=== PATIENT | female | born 1960 | race Caucasian/White ===

== ENCOUNTER → 2017-09-28 06:41 | Outpatient (CLI) | payer OTHER, SELFPAY ==
[2017-09-28 07:52] LABS: AST(SGOT) 17 U/L (15-37); Alanine Aminotransfer ALT/SGPT 30 U/L (13-56); Albumin, Serum 4.1 g/dL (3.2-5.0); Alkaline Phosphatase 87 U/L (45-117); Bilirubin, Direct 0.15 mg/dL (0.00-0.30); Cholesterol 152 mg/dL (200); Globulin 3.3 g/dL (2.2-4.2); High Density Lipoprotein 70 mg/dL; Protein, Total 7.4 g/dL (6.4-8.2); Triglycerides 116 mg/dL; Very Low Density Lipoprotein 23 mg/dL (5-40)
== END ==
PROVIDERS: Family Provider Family Medicine; PCP Family Medicine; Visit Provider Internal Medicine Cardiovascular Disease
DX: E78.5 Hyperlipidemia, unspecified (principal); Z79.899 Other long term (current) drug therapy
CPT/HCPCS: 36415; 80061; 80076

== ENCOUNTER → 2018-03-26 08:39 | Outpatient (CLI) | payer OTHER, SELFPAY ==
[2018-03-26 10:31] LABS: AST(SGOT) 16 U/L (15-37); Alanine Aminotransfer ALT/SGPT 26 U/L (13-56); Alkaline Phosphatase 95 U/L (45-117); Bilirubin, Direct 0.23 mg/dL (0.00-0.30); Cholesterol 140 mg/dL (200); Globulin 3.1 g/dL (2.2-4.2); High Density Lipoprotein 86 mg/dL; Protein, Total 7.1 g/dL (6.4-8.2); Triglycerides 47 mg/dL; Very Low Density Lipoprotein 9 mg/dL (5-40)
== END ==
PROVIDERS: Family Provider Family Medicine; PCP Family Medicine; Referring Provider Internal Medicine Cardiovascular Disease; Visit Provider Internal Medicine Cardiovascular Disease
DX: E78.5 Hyperlipidemia, unspecified (principal)
CPT/HCPCS: 36415; 80061; 80076

== ENCOUNTER → 2018-09-17 09:31 | Outpatient (CLI) | payer OTHER, SELFPAY ==
[2018-03-30 11:34] VITALS: BMI 36.0
--- NOTE | 2018-09-17 09:35 | BI_ITS ---
MAMMOGRAPHY - BILATERAL SCREENING 3-D TOMOSYNTHESIS REASON FOR EXAM: Female, 57 years old. Baseline Bilateral Screening 3-D tomosynthesis PERTINENT HISTORY: No significant family history. TECHNIQUE: 2-D mammograms and 3-D Tomosynthesis of the breast (s) were performed. CAD was performed. COMPARISON: None. Baseline examination. FINDINGS: The breast composition is composed of scattered fibroglandular density. There is a 6.4 mm maximum dimension, ovoid, well-circumscribed nodule within the right lower medial breast positioned approximately 5 cm from the nipple base. This finding may represent a cyst or somewhat atypically positioned intramammary lymph node. However, as this is a baseline exam and stability cannot be determined, recommend characterization of this nodule with sonography. There are scattered typically benign appearing calcifications. There is no evidence of malignancy within the left breast. BI/SCREEN MAMM (CAD) W/DESMOND BILAT IMPRESSION: Subcentimeter right breast nodule. Baseline exam without comparison. Therefore recommend characterization with sonography. ASSESSMENT CATEGORY: BIRADS Category 0: Incomplete. Need additional imaging evaluation as above. A letter regarding these results will be sent to the patient by the facility within 30 days. FOLLOW UP RECOMMENDATION: Ultrasound Recommended. (I) Approximately 10% of breast cancers are not detected by mammography. A normal mammogram should not delay biopsy of a clinically suspicious abnormality. Electronically Signed: Julio Mckee MD at 12:57 EDT , Service support ,
== END ==
PROVIDERS: Family Provider Family Medicine; PCP Family Medicine; Referring Provider Nurse Practitioner Women's Health; Visit Provider Nurse Practitioner Women's Health
DX: Z12.31 Encounter for screening mammogram for malignant neoplasm of breast (principal)
CPT/HCPCS: 77063; 77067

== ENCOUNTER → 2018-09-28 11:54 | Outpatient (CLI) | payer OTHER, SELFPAY ==
[2018-03-30 11:34] VITALS: BMI 36.0
--- NOTE | 2018-09-28 11:56 | US_ITS ---
STUDY: ULTRASOUND BREAST - RIGHT REASON FOR EXAM: Female, 57 years old. Abnormal screening mammogram. TECHNIQUE: Axial and longitudinal images of the RIGHT breast were performed with a high resolution ultrasound transducer. COMPARISON: Comparison is made with prior mammogram dated September 17, 2018. FINDINGS: RIGHT Breast: The mammographic abnormality corresponds to a 4 mm x 6 mm x 4 mm well-defined hypoechoic nodule at the 4:00 position of the breast at 1 cm from the nipple. This most likely absence a small lymph node. US/Breast Limited Unilateral IMPRESSION: Findings suggestive of a small lymph node as described. Routine mammographic follow-up is recommended. ASSESSMENT CATEGORY: BIRADS Category 2: Benign. A letter regarding these results will be sent to the patient by the facility within 30 days. Electronically Signed: Gee Aguirre, at 14:35 EDT , Service support ,
== END ==
PROVIDERS: Family Provider Family Medicine; PCP Family Medicine; Referring Provider Nurse Practitioner Women's Health; Visit Provider Nurse Practitioner Women's Health
DX: R92.8 Other abnormal and inconclusive findings on diagnostic imaging of breast (principal)
CPT/HCPCS: 76642

== ENCOUNTER → 2018-10-24 09:01 | Outpatient (CLI) | payer OTHER, SELFPAY ==
[2018-03-30 11:34] VITALS: BMI 36.0
[2018-10-24 10:11] LABS: AST(SGOT) 16 U/L (15-37); Alanine Aminotransfer ALT/SGPT 24 U/L (13-56); Alkaline Phosphatase 99 U/L (45-117); Bilirubin, Direct 0.17 mg/dL (0.00-0.30); Cholesterol 179 mg/dL (200); Globulin 3.3 g/dL (2.2-4.2); High Density Lipoprotein 76 mg/dL; Protein, Total 7.3 g/dL (6.4-8.2); Triglycerides 101 mg/dL; Very Low Density Lipoprotein 20 mg/dL (5-40)
== END ==
PROVIDERS: Family Provider Family Medicine; PCP Family Medicine; Referring Provider Internal Medicine Cardiovascular Disease; Visit Provider Internal Medicine Cardiovascular Disease
DX: E78.5 Hyperlipidemia, unspecified (principal)
CPT/HCPCS: 36415; 80061; 80076

== ENCOUNTER 2018-11-23 07:56 | Day surgery (SDC) | payer OTHER, SELFPAY ==
[2018-10-25 08:59] VITALS: BMI 36.0
[2018-10-25 10:28] VITALS: BMI 37.9
[2018-11-23] VITALS (9 sets, daily range): BP systolic 98–131; BP diastolic 58–83; PULSE 63–74; RESP 16–95; TEMP 35.9–37.4; O2SAT 16–100; BMI 37.9
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
--- NOTE | 2018-11-23 09:19 | OP.ENDO_ITS ---
11/23/2018 Donis Portillo [address] [place] [address] Re : Colonoscopy procedure for Irma Flower Dear Dr. Portillo This procedure was performed on Friday, November 23, 2018. My impressions and recommendations are as follows: Impressions : - Hemorrhoids found on perianal exam. - Diverticulosis in the sigmoid colon. There was no evidence of diverticular bleeding. - The examination was otherwise normal. - No specimens collected. Recommendations : - Discharge patient to home. - Resume previous diet. - Continue present medications. - Repeat colonoscopy in 10 years for screening purposes. My findings are described in the full procedure note, which is enclosed. If I can be of further assistance, please feel free to contact me at Doctor phone number(s): Work: . Sincerely, Donis Hodges MD 11/23/2018 9:18:47 AM This report has been signed electronically.
== END 2018-11-23 10:32 | disposition home or self-care (01) ==
LOC: EN 07:57 → AC 07:58
PROVIDERS: Family Provider Family Medicine; PCP Family Medicine; Referring Provider Family Medicine; Visit Provider Surgery
PROC: 0DJD8ZZ Inspection of Lower Intestinal Tract, Via Natural or Artificial Opening Endoscopic (ICD-10-PCS; CPT 45378; principal; 2018-11-23 08:55)
DX: Z12.11 Encounter for screening for malignant neoplasm of colon (principal); K57.30 Diverticulosis of large intestine without perforation or abscess without bleeding; K64.9 Unspecified hemorrhoids; I48.0 Paroxysmal atrial fibrillation; E78.5 Hyperlipidemia, unspecified; Z79.82 Long term (current) use of aspirin
CPT/HCPCS: 45378; 99152; 99153; J7120

== ENCOUNTER → 2019-10-23 16:08 | Outpatient (CLI) | payer OTHER, SELFPAY ==
[2018-11-23 08:16] VITALS: BMI 37.9
[2019-10-23 17:41] LABS: AST(SGOT) 27 U/L (15-37); Alanine Aminotransfer ALT/SGPT 25 U/L (13-56); Albumin, Serum 4.3 g/dL (3.2-5.0); Alkaline Phosphatase 100 U/L (45-117); Bilirubin, Direct 0.23 mg/dL (0.00-0.30); Cholesterol 179 mg/dL (200); Globulin 3.3 g/dL (2.2-4.2); High Density Lipoprotein 80 mg/dL; Protein, Total 7.6 g/dL (6.4-8.2); Triglycerides 123 mg/dL; Very Low Density Lipoprotein 25 mg/dL (5-40)
== END ==
PROVIDERS: Referring Provider Internal Medicine Cardiovascular Disease; Visit Provider Internal Medicine Cardiovascular Disease
DX: E78.5 Hyperlipidemia, unspecified (principal)
CPT/HCPCS: 36415; 80061; 80076

== ENCOUNTER → 2021-05-13 12:17 | Outpatient (CLI) | payer OTHER, SELFPAY ==
--- NOTE | 2021-05-13 12:20 | BI_ITS ---
MAMMOGRAPHY - BILATERAL SCREENING 3-D TOMOSYNTHESIS REASON FOR EXAM: Female, 60 years old. SCREENING PERTINENT HISTORY: No significant family history. TECHNIQUE: 2-D mammograms and 3-D Tomosynthesis of the breast (s) were performed. CAD was performed. COMPARISON: 09/17/2018 FINDINGS: The breast composition is composed of scattered fibroglandular density. Scattered benign calcifications are seen. No dense spiculated masses or suspicious microcalcifications are identified. No architectural distortion is identified. There is no skin thickening or retraction. There has been no significant change since the prior study. BI/SCRN MAMM (CAD)W/DESMOND BILAT IMPRESSION: No mammographic signs of malignancy. Routine yearly mammograms recommended. ASSESSMENT CATEGORY: BIRADS Category 1: Negative. A letter regarding these results will be sent to the patient by the facility within 30 days. FOLLOW UP RECOMMENDATION: Yearly follow up mammogram recommended. (A) Approximately 10% of breast cancers are not detected by mammography. A normal mammogram should not delay biopsy of a clinically suspicious abnormality. Electronically Signed: Yuriy Montoya MD at 13:49 EST Tel , Service support ,
== END ==
PROVIDERS: Referring Provider Family Medicine; Visit Provider Family Medicine
DX: Z12.31 Encounter for screening mammogram for malignant neoplasm of breast (principal)
CPT/HCPCS: 77063; 77067

== ENCOUNTER → 2021-09-13 | Outpatient (CLI) | payer OTHER, SELFPAY ==
[2021-09-13 16:55] LABS: Absolute Lymphocyte Count 2.19 X10^3/uL (0.83-4.51); Absolute Neutrophil Count 3.7 X10^3/uL (2.0-7.7); Basophil# 0.04 X10^3/uL; Basophil% 0.6 % (0-1); Eosinophil# 0.26 X10^3/uL; Eosinophils% 3.9 % (0-5); Hematocrit 43.8 % (37-47); Hemoglobin 14.8 g/dL (12.0-15.0); Lymphocyte # 2.19 X10^3/ul (0.83-4.51); Lymphocyte % 32.6 % (19-41); Mean Corp Hgb Conc 33.8 g/dL (32-36); Mean Corpuscular Hgb 28.9 pg (27.0-32.0); Mean Corpuscular Volume 85.5 fL (81-99); Mean Platelet Vol. 12.2 fl (6.2-12.0); Monocyte# 0.49 X10^3/uL; Monocyte% 7.3 % (0-10); NRBC Flagged by Analyzer 0 % (0-5); Neutrophil # 3.71 X10^3/uL (2.7-7.7); Neutrophil % 55.3 % (47-70); Platelet Count 221 K/mm3 (150-450); RBC Distribution Width SD 37.6 fl (35.1-43.9); Red Blood Count 5.12 M/mm3 (4.2-5.4); White Blood Count 6.7 K/mm3 (4.4-11.0)
[2021-09-13 18:05] LABS: BNP,B-Type NATRIURETIC PEPTIDE 6.8 pg/mL (0-100)
[2021-09-13 18:16] LABS: Anion Gap 7 (5-15); BUN 12 mg/dL (7-18); BUN/Creat Ratio 20.4 RATIO (10-20); Calcium,Total 9.4 mg/dL (8.5-10.1); Chloride 107 mmol/L (98-107); Creatinine, Serum 0.59 mg/dL (0.55-1.02); EST Glomerular Filtration Rate 110 mL/min (>60); Est Glom Filt Rate - Afr Amer 133 mL/min (>60); Glucose 83 mg/dL (74-106); Magnesium 2.4 mg/dL (1.6-2.6); Potassium 3.6 mmol/L (3.5-5.1); Sodium Level 138 mmol/L (136-145); Thyroid Stim Hormone (TSH) 1.81 uIU/mL (0.358-3.74)
== END | disposition home or self-care (01) ==
LOC: LAB 15:37
PROVIDERS: Referring Provider Physician Assistant Medical; Visit Provider Physician Assistant Medical
DX: R06.00 Dyspnea, unspecified (principal); I48.0 Paroxysmal atrial fibrillation; E78.00 Pure hypercholesterolemia, unspecified
CPT/HCPCS: 36415; 80048; 83735; 83880; 84443; 85025

== ENCOUNTER → 2021-09-22 | Outpatient (CLI) | payer OTHER, SELFPAY ==
--- NOTE | 2021-09-22 14:04 | PFTCOMP_ITS ---
COMPLETE PULMONARY FUNCTION TEST INTERPRETATION Brief HPI: Patient is a 60-year-old female, currently under the care of Jimena Grigsby, who presents to [facility] for complete pulmonary function tests secondary to diagnosis of dyspnea. Respiratory therapist reports good effort and reproducible results. Interpretation: Forced expiration spirometry shows no large airways obstructive ventilatory defect with an FEV1 of 94% predicted. There is no significant bronchodilator response by strict ATS criteria. Spirograms are of good quality and plateau slowly, indicating slowly emptying areas of the lungs. The respiratory flow volume loop shows decreased expiratory flow rates at high lung volumes consistent with small airways obstruction. Lung volumes by body plethysmography show a decreased total lung capacity at 4.35 L, 79% predicted. All other lung volumes are reduced symmetrically. Diffusion capacity by carbon monoxide is normal at 88% predicted. The airway resistance is normal. No previous pulmonary function tests were available for review. Impression: Mild restrictive ventilatory defect with some stigmata of small airways disease and preserved diffusion capacity.
== END | disposition home or self-care (01) ==
LOC: PSN 08:18
PROVIDERS: Referring Provider Physician Assistant Medical; Visit Provider Physician Assistant Medical
DX: R06.00 Dyspnea, unspecified (principal)
CPT/HCPCS: 94060; 94726; 94729

== ENCOUNTER → 2021-12-17 | Outpatient (CLI) | payer OTHER, SELFPAY ==
--- NOTE | 2021-12-17 13:06 | ECHOCS_ITS ---
Reason For Study: DYSPNEA Procedure This was a 2D Doppler, Color Flow transthoracic echocardiogram. The study was technically difficult. Contrast injection was performed. Exam performed in department. Left Ventricle Normal LV size. Moderate concentric left ventricular hypertrophy. Left ventricular systolic function is normal. The estimated ejection fraction is 60 %. Stage 2 diastolic dysfunction. No regional wall motion abnormalities noted. Right Ventricle Normal RV size. Normal systolic function. Atria Normal left atrium. Normal right atrium. Mitral Valve There is mild mitral annular calcification. Mild (1+) eccentric mitral valve insufficiency. Tricuspid Valve Normal tricuspid valve. Mild tricuspid valve insufficiency. Pulmonary artery systolic pressure is 24 mmHg. Aortic Valve The aortic valve is not well visualized. Pulmonic Valve Normal pulmonic valve. Great Vessels Normal aortic root. The pulmonary artery is normal size. Normal inferior vena cava. Pericardium/Pleural No pericardial effusion. Medication 22 gauge I.V. with prn adaptor inserted into right arm. Diluted definity 1.5ml given slow IV push to enhance endocardial definition. MMode/2D Measurements & Calculations LVIDd: 4.6 cm IVSd: 1.6 cm Ao root diam: 3.1 cm LVIDs: 3.0 cm LVPWd: 1.7 cm FS: 34.7 % LAV(MOD-bp): 70.7 ml LVAd ap4: 42.2 cm2 SV(MOD-sp4): 129.3 ml LAV(MOD-bp) Indexed: 31.8 ml/m2 LVLd ap4: 8.7 cm LAV(MOD-sp2): 79.5 ml EDV(MOD-sp4): 168.0 ml LAV(MOD-sp4): 62.4 ml EDV(sp4-el): 172.9 ml LVAs ap4: 18.1 cm2 LVLs ap4: 6.6 cm ESV(MOD-sp4): 38.8 ml ESV(sp4-el): 42.3 ml EF(MOD-sp4): 76.9 % EF(sp4-el): 75.5 % SV(sp4-el): 130.6 ml LA A4 area: 21.0 cm2 LA dimension(2D): 4.6 cm RA A4 area: 17.1 cm2 Time Measurements MV dec time: 0.22 sec Doppler Measurements & Calculations MV E max shailesh: 94.0 cm/sec MV V2 max: 106.6 cm/sec MV dec slope: 428.4 cm/sec2 MV A max shailesh: 54.9 cm/sec MV max P.6 mmHg MV E/A: 1.7 MV V2 mean: 61.9 cm/sec MV mean P.8 mmHg MV V2 VTI: 39.7 cm Ao V2 max: 147.3 cm/sec LV V1 max: 110.7 cm/sec PA V2 max: 119.9 cm/sec Ao max P.7 mmHg LV V1 max P.9 mmHg PA V2 mean: 87.0 cm/sec Ao V2 mean: 100.5 cm/sec LV V1 mean P.0 mmHg Ao mean P.7 mmHg LV V1 mean: 82.4 cm/sec Ao V2 VTI: 35.6 cm LV V1 VTI: 27.3 cm TR max shailesh: 224.4 cm/sec TR max P.1 mmHg ECHO/Echo Complete W/ Contrast Interpretation Summary Normal LV size. Left ventricular systolic function is normal. The estimated ejection fraction is 60 %. Moderate concentric left ventricular hypertrophy. Stage 2 diastolic dysfunction. Contrast injection was performed. Ordering Physician: Jimena Grigsby Referring Physician: Jimena Grigsby Performed By: Marilu Bustos RCS
== END | disposition home or self-care (01) ==
LOC: CVS 13:05
PROVIDERS: Referring Provider Physician Assistant Medical; Visit Provider Physician Assistant Medical
DX: R06.00 Dyspnea, unspecified (principal); I48.0 Paroxysmal atrial fibrillation; E78.5 Hyperlipidemia, unspecified
CPT/HCPCS: 93306; Q9957; A4216; C8929

== ENCOUNTER 2022-06-07 21:42 | Emergency (ER) | payer OTHER, SELFPAY ==
[2022-06-07 21:43] VITALS: BP 154/76; PULSE 77; RESP 18; TEMP 35.9; O2SAT 96; BMI 39.9
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
[2022-06-07 22:42] LABS: Absolute Lymphocyte Count 2.49 X10^3/uL (0.83-4.51); Absolute Neutrophil Count 3.4 X10^3/uL (2.0-7.7); Basophil# 0.05 X10^3/uL; Basophil% 0.7 % (0-1); Eosinophil# 0.35 X10^3/uL; Eosinophils% 5.1 % (0-5); Hemoglobin 13.6 g/dL (12.0-15.0); Lymphocyte # 2.49 X10^3/ul (0.83-4.51); Lymphocyte % 36.1 % (19-41); Mean Corp Hgb Conc 33.2 g/dL (32-36); Mean Corpuscular Hgb 28.8 pg (27.0-32.0); Mean Corpuscular Volume 86.9 fL (81-99); Mean Platelet Vol. 12.1 fl (6.2-12.0); Monocyte# 0.57 X10^3/uL; Monocyte% 8.3 % (0-10); NRBC Flagged by Analyzer 0 % (0-5); Neutrophil # 3.43 X10^3/uL (2.7-7.7); Neutrophil % 49.7 % (47-70); Platelet Count 185 K/mm3 (150-450); RBC Distribution Width CV 12.7 % (11.6-14.6); RBC Distribution Width SD 39.8 fl (35.1-43.9); Red Blood Count 4.72 M/mm3 (4.2-5.4); White Blood Count 6.9 K/mm3 (4.4-11.0)
[2022-06-07 22:52] LABS: Prothrombin Time (Protime)PT. 12.8 SECONDS (11.7-14.9)
[2022-06-07 22:53] LABS: Partial Thromboplast Time 29.4 Seconds (24.1-36.2)
== END 2022-06-07 22:38 | disposition home or self-care (01) ==
PROVIDERS: Emergency Provider Emergency Medicine; Visit Provider Emergency Medicine
DX: S50.12XA Contusion of left forearm, initial encounter (principal); I48.0 Paroxysmal atrial fibrillation; Z79.82 Long term (current) use of aspirin; X58.XXXA Exposure to other specified factors, initial encounter
CPT/HCPCS: 85025; 85610; 85730; 99282

== ENCOUNTER 2023-07-23 05:17 | Emergency (ER) | payer BC, SELFPAY ==
[2023-07-23 05:18] VITALS: BP 179/73; PULSE 139; RESP 17; TEMP 36.1; O2SAT 98; BMI 38.9
[2023-07-23 05:29] VITALS: O2SAT 96
--- NOTE | 2023-07-23 05:29 | EKG12_ITS ---
Test Reason : DYSRHYTHMIA Blood Pressure : / mmHG Vent. Rate : 067 BPM Atrial Rate : 067 BPM P-R Int : 176 ms QRS Dur : 112 ms QT Int : 418 ms P-R-T Axes : 035 -77 027 degrees QTc Int : 441 ms Normal sinus rhythm Left anterior fascicular block Minimal voltage criteria for LVH, may be normal variant ( Max product ) Possible Lateral infarct , age undetermined Abnormal ECG Confirmed by Willy Bejarano ([id number]), material expeditor MELVA CURTIS ([id number]) on 07/25/2023 8:17:24 AM Referred By: SARI Confirmed By:Willy Bejarano
--- NOTE | 2023-07-23 05:29 | RAD_ITS ---
EXAM: XR CHEST, 1 VIEW CLINICAL INDICATION: chest pain TECHNIQUE: Frontal view of the chest. COMPARISON: No relevant prior studies available. FINDINGS: LUNGS AND PLEURAL SPACES: Unremarkable. No consolidation or edema. No pneumothorax. No effusion. HEART: Unremarkable. Cardiac silhouette not enlarged. MEDIASTINUM: Central airways and mediastinal contour are unremarkable. BONES/JOINTS: Unremarkable. No acute fracture. SOFT TISSUES: Unremarkable. RAD/Chest 1 View (Portable) IMPRESSION: No acute cardiopulmonary abnormality. Electronically Signed: Willy Martinez MD at 6:07 EDT ,
[2023-07-23 05:43] LABS: Absolute Lymphocyte Count 2.27 X10^3/uL (0.83-4.51); Absolute Neutrophil Count 2.5 X10^3/uL (2.0-7.7); Basophil# 0.05 X10^3/uL; Basophil% 0.9 % (0-1); Eosinophils% 5.4 % (0-5); Hematocrit 43.3 % (37-47); Hemoglobin 14.4 g/dL (12.0-15.0); Lymphocyte # 2.27 X10^3/ul (0.83-4.51); Lymphocyte % 40.8 % (19-41); Mean Corp Hgb Conc 33.3 g/dL (32-36); Mean Corpuscular Hgb 28.7 pg (27.0-32.0); Mean Corpuscular Volume 86.3 fL (81-99); Mean Platelet Vol. 11.9 fl (6.2-12.0); Monocyte# 0.47 X10^3/uL; Monocyte% 8.4 % (0-10); NRBC Flagged by Analyzer 0 % (0-5); Neutrophil # 2.47 X10^3/uL (2.7-7.7); Neutrophil % 44.3 % (47-70); Platelet Count 186 K/mm3 (150-450); RBC Distribution Width CV 12.5 % (11.6-14.6); RBC Distribution Width SD 39.2 fl (35.1-43.9); Red Blood Count 5.02 M/mm3 (4.2-5.4); White Blood Count 5.6 K/mm3 (4.4-11.0)
--- OUTSIDE RECORDS SUMMARY | 2023-07-23 05:44 | XMS RPT_ITS | CCD ---
Author Name Unknown Address [id number] [place] [address] Organization [facility] Care Team Providers Care Enterprise Systems Administrator Name Role Phone Sandra Timmons Unavailable Unavailable MD Alexandro, Alberto Morales Unavailable RAFAEL FERMIN Attending Unavailable IMCA Referring Unavailable RAFAEL RESENDIZ Primary Care Unavailable ALIVIA JOSEHP Attending Unavailable RAFAEL RESENDIZ Referring Unavailable RAFAEL RESENDIZ Primary Care Unavailable MICHAEL HENAO DO Primary Care Physician [phone] Skylar AMBROSIO, Corine Ramirez Unavailable Unavailable Jordyn Bose Unavailable Jordyn Bose Unavailable MICHAEL HENAO DO Primary Care Physician [phone] MAST YOSEF JOHNSON Attending UnavailMICHAEL Zarate DO Primary Care Unavailable SUPPAYESHA LPAZA DPM Attending Unavailable MICHAEL HENAO DO Primary Care Unavailable SUPPAYESHA PLAZA DPM Attending Unavailable MICHAEL HENAO DO Primary Care Unavailable MAST YOSEF JOHNSON Attending UnavailMICHAEL Zarate DO Primary Care Unavailable Allergies Allergy Classification Reported Allergen(s) Allergy Type Date of Onset Reaction(s) Facility (5 sources) acetaminophen / HYDROcodone Drug Allergy 10-28-19 11 Itching [facility] Work Phone: (5 sources) atorvastatin Drug Allergy 10-28-19 11 Myalgias [facility] Work Phone: (14 sources) codeine; Translations: [CODEINE] Drug Allergy 10-28-19 11 Itching (finding) [facility] Work Phone: (14 sources) Contrast media; Translations: [CONTRAST DYE] allergy to substance 10-28-19 11 Hives [facility] Work Phone: [phone] (6 sources) ibuprofen; Translations: [IBUPROFEN] Drug Allergy 12-07-19 17 GI upset [facility] Work Phone: [phone] (6 sources) naproxen; Translations: [NAPROXEN] Drug Allergy 12-07-19 17 GI upset [facility] Work Phone: [phone] (13 sources) penicillin; Translations: [penicillin] Drug Allergy 10-28-19 11 Itching (finding) [facility] Work Phone: [phone] (5 sources) pseudoephedrine Drug Allergy 10-28-19 11 Swelling [facility] Work Phone: [phone] (5 sources) sotalol Drug Allergy 12-07-19 17 difficulty concentrating, fatigue [facility] Work Phone: [phone] (5 sources) BENADRYL (HIGH DOSES drug allergy 10-28-19 11 leg jerks [facility] Work Phone: [phone] (1 source) apixaban; Translations: [APIXABAN] Drug Allergy [facility] Repository (1 source) diphenhydrAMINE; Translations: [DIPHENHYDRAMINE HCL] Drug Allergy [facility] Repository (1 source) Penicillins; Translations: [PENICILLINS] Propensity to adverse reactions (disorder) [facility] Repository (8 sources) diphenhydrAMINE; Translations: [diphenhydramine] Drug Allergy Spasm of bladder (finding), Itching (finding) [facility] Medications Current Medications Medication Drug Class(es) Dates Sig (Normalized) Sig (Original) acetaminophen 500 mg oral tablet (4 sources) Start: 12-06-2019 acetaminophen 500 mg oral tablet Dose : 1,000 mg = 2 tab(s), Oral, TID, PRN pain or fever, 0 Refill(s) Start Date: 12/06/19 Status: Ordered 120 actuat albuterol 0.1 mg/actuat / ipratropium bromide 0.02 mg/actuat inhalation spray (1 source) Anticholinergic, beta2-Adrenergic Agonist Start: 10-01-2021 take 1 dose by inhalation every six hours as needed Combivent Respimat CFC free 20 mcg-100 mcg/inh inhalation aerosol Dose = 1 puff(s), Inhalation, q6hr, NEEDED, # 1 EA, 1 Refill(s), Pharmacy: [facility]/pharmacy #[id number], 170.2, cm, 10/01/21 9:59:00 EDT, Height, kg, 10/01/21 9:59:00 EDT, Dosing Weight Start Date: 10/01/21 Status: Ordered albuterol MDI (90 mcg/inh) CFC free inhalation aerosol (6 sources) Start: 05-25-2023 End: 08-23-2023 take 2 puff(s) by inhalation every four hours as needed for wheezing albuterol MDI (90 mcg/inh) CFC free inhalation aerosol 2 puff(s), Inhalation, q4h, PRN as needed for wheezing, # 18 gram(s), 0 Refill(s), Pharmacy: [facility] [id number] [facility] [employer], Acute sinusitis COVID-19, 170.5, cm, 05/25/23 9:38:00 EST, Height, kg, 05/25/23 9:38:00 EST, Dosing Weight Start Date: 05/25/23 Stop Date: 08/23/23 Status: Ordered Completed/Discontinued Medications Medication Drug Class(es) Dates Sig (Normalized) Sig (Original) albuterol 0.83 mg/ml inhalation solution (20 sources) beta2-Adrenergic Agonist Start: 07-04-2014 End: 12-06-2016 ALBUTEROL SULFATE NEBU 90 Mcg/inh as needed ALBUTEROL SULFATE NEBU Alberto Andrew David MD Problems Active Problems Problem Classification Problem Date Documented Date Episodic/Chronic Cardiac dysrhythmias (20 sources) Unspecified atrial flutter; Translations: [Paroxysmal supraventricular tachycardia] Onset: 10-27-2010 07-05-2016 Chronic Conditions associated with dizziness or vertigo (4 sources) Vertigo 07-25-2022 Episodic Disorders of lipid metabolism (5 sources) Hyperlipidemia; Translations: [Hyperlipidemia, unspecified] Onset: 10-27-2010 10-27-2010 Chronic Genitourinary symptoms and ill-defined conditions (7 sources) Urinary symptoms ; Translations: [Dysuria] Onset: 01-25-2023 01-25-2023 Episodic Other nutritional; endocrine; and metabolic disorders (2 sources) Obesity, unspecified Onset: 06-13-2018 Chronic Other nutritional; endocrine; and metabolic disorders (6 sources) Finding of body mass index; Translations: [Body mass index (BMI) 39.0-39.9, adult] Onset: 07-04-2014 08-18-2016 Chronic Other upper respiratory disease (1 source) Deviated nasal septum 07-05-2023 Episodic Other upper respiratory infections (14 sources) Acute maxillary sinusitis; Translations: [Acute sinusitis] 07-30-2019 Episodic Unclassified (4 sources) Body mass index (BMI) 40.0-44.9, adult; Translations: [Body mass index (BMI) 39.0-39.9, adult] Onset: 07-04-2014 07-04-2014 Chronic Unclassified (4 sources) Long-term drug therapy; Translations: [Other detention (current) drug therapy] Onset: 07-04-2014 07-15-2015 Past or Other Problems Problem Classification Problem Date Documented Date Episodic/Chronic Other aftercare (6 sources) Long-term drug therapy; Translations: [Other rn long term care (current) drug therapy] Onset: 07-04-2014 07-15-2015 Episodic Other and unspecified benign neoplasm (2 sources) 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, including hip; Translations: [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, including hip] Onset: 02-03-2023 Episodic Other circulatory disease (5 sources) Carotid bruit; Translations: [Other specified symptoms and signs involving the circulatory and respiratory systems] Onset: 08-18-2016 08-18-2016 Episodic Other screening for suspected conditions (not mental disorders or infectious disease) (5 sources) Electrocardiogram abnormal; Translations: [Abnormal electrocardiogram [ECG] [EKG]] Onset: 10-27-2010 10-27-2010 Episodic Syncope (5 sources) Syncope and collapse; Translations: [Syncope and collapse] Onset: 05-06-2013 05-06-2013 Episodic Urinary tract infections (5 sources) Urinary tract infectious disease; Translations: [Urinary tract infection, site not specified] Onset: 01-25-2023 01-25-2023 Episodic Results Test Name Value Interpretation Reference Range Facil ity Vital Signs Date Time Vital Sign Value Performing Clinician Aren foley 02-03-2023 10:33-0400 Diastolic Blood Pressure Non-Invasive 73 1 AYESHA SUPPAN DPM [facility] 02-03-2023 10:33-0400 Heart rate 56 /min AYESHA SUPPAN DPM [facility] 02-03-2023 10:33-0400 Respiratory rate 15 /min AYESHA SUPPAN DPM [facility] 02-03-2023 10:33-0400 Systolic Blood Pressure Non-Invasive 120 1 AYESHA SUPPAN DPM [facility] 02-03-2023 10:25-0400 Diastolic Blood Pressure Non-Invasive 65 1 AYESHA SUPPAN DPM [facility] 02-03-2023 10:25-0400 Heart rate 54 /min AYESHA SUPPAN DPM [facility] 02-03-2023 10:25-0400 Respiratory rate 18 /min AYESHA SUPPAN DPM [facility] 02-03-2023 10:25-0400 Systolic Blood Pressure Non-Invasive 113 1 AYESHA SUPPAN DPM [facility] 02-03-2023 10:15-0400 Diastolic Blood Pressure Non-Invasive 67 1 AYESHA SUPPAN DPM [facility] 02-03-2023 10:15-0400 Heart rate 59 /min AYESHA SUPPAN DPM [facility] 02-03-2023 10:15-0400 Respiratory rate 16 /min AYESHA SUPPAN DPM [facility] 02-03-2023 10:15-0400 Systolic Blood Pressure Non-Invasive 119 1 AYESHA SUPPAN DPM [facility] 02-03-2023 10:05-0400 Body temperature 97.34 [degF] AYESHA SUPPAN DPM [facility] 02-03-2023 10:00-0400 Respiratory Rate - Anes 15 br/min AYESHA SUPPAN DPM [facility] 02-03-2023 09:55-0400 Respiratory Rate - Anes 11 br/min AYESHA SUPPAN DPM [facility] 02-03-2023 09:50-0400 Body height 170 cm AYESHA SUPPAN DPM [facility] 02-03-2023 09:50-0400 Body weight 112 kg AYESHA SUPPAN DPM [facility] 02-03-2023 09:50-0400 Respiratory Rate - Anes 11 br/min AYESHA SUPPAN DPM [facility] 02-03-2023 08:21-0400 Body temperature 97.52 [degF] AYESHA SUPPAN DPM [facility] 02-03-2023 08:21-0400 Heart rate 72 /min AYESHA SUPPAN DPM [facility] 01-24-2023 09:15-0400 Body height 170.2 cm AYESHA SUPPAN DPM [facility] 01-24-2023 09:15-0400 Body weight 111.9 kg AYSEHA MOHAN DPM [facility] 01-24-2023 09:15-0400 Body weight 38.63 kg/m2 AYESHA MOHAN DPM [facility] 01-24-2023 09:15-0400 Heart rate 68 /min AYESHA PINEDAAN DPM [facility] 01-24-2023 09:15-0400 Respiratory rate 20 /min AYESHA PINEDAAN DPM [facility] 03-28-2017 16:09-0500 Body height 170.18 cm Jordyn Bose Work Phone: [facility] Work Phone: 03-28-2017 16:09-0500 Body mass index (BMI) [Ratio] 38.65 kg/m2 Jordyn Bose Work Phone: [facility] Work Phone: 03-28-2017 16:09-0500 Body weight 111.95 kg Jordyn Bose Work Phone: [facility] Work Phone: 03-28-2017 16:09-0500 Diastolic blood pressure 60 mm[Hg] Jordyn Bose Work Phone: [facility] Work Phone: 03-28-2017 16:09-0500 Heart rate 68 /min Jordyn Bose Work Phone: [facility] Work Phone: 03-28-2017 16:09-0500 Respiratory rate 20 /min Jordyn Bose Work Phone: [facility] Work Phone: 03-28-2017 16:09-0500 Systolic blood pressure 120 mm[Hg] Jordyn Bose Work Phone: [facility] Work Phone: 08-18-2016 15:35-0400 Body height 170.18 cm Corine Cheng RN [facility] Work Phone: 08-18-2016 15:35-0400 Body mass index (BMI) [Ratio] 39.28 kg/m2 Corine Cheng RN [facility] Work Phone: 08-18-2016 15:35-0400 Body weight 113.76 kg Corine Cheng RN [facility] Work Phone: 08-18-2016 15:35-0400 Diastolic blood pressure 60 mm[Hg] Corine Cheng RN [facility] Work Phone: 08-18-2016 15:35-0400 Heart rate 72 /min Corine Cheng RN [facility] Work Phone: 08-18-2016 15:35-0400 Respiratory rate 12 /min Corine Cheng RN [facility] Work Phone: 08-18-2016 15:35-0400 Systolic blood pressure 104 mm[Hg] Corine Cheng RN [facility] Work Phone: 08-18-2016 15:35-0400 Weight 113.76 kg Alberto David MD [facility] Work Phone: 07-07-2016 09:00-0500 Body surface area Derived from formula 2.22 m2 Corine Cheng RN [facility] Work Phone: Encounters Encounter Date Encounter Type Care Provider Facility Start: 07-05-2023 End: 07-10-2023 ambulatory YOSEF MAST SLEEP MEDICINE PHYSICIAN-CONTRACT MAIL CARRIER Facility:[facility] Start: 07-05-2023 End: 07-09-2023 Outreach Lab YOSEF MAST SLEEP MEDICINE PHYSICIAN-CONTRACT MAIL CARRIER [facility] Start: 02-03-2023 End: 02-03-2023 ambulatory AYESHA MOHAN DPM Facility:[facility] Start: 02-03-2023 End: 02-03-2023 SAME DAY STAY AYESHA MOHAN DPM [facility] Start: 01-25-2023 End: 01-30-2023 ambulatory YOSEF MAST SLEEP MEDICINE PHYSICIAN-CONTRACT MAIL CARRIER Facility:[facility] Start: 01-25-2023 End: 01-29-2023 Outreach Lab YOSEF MAST SLEEP MEDICINE PHYSICIAN-CONTRACT MAIL CARRIER [facility] Start: 01-24-2023 End: 01-25-2023 ambulatory AYESHA N SUPPAN DPM Facility:[facility] Start: 01-24-2023 End: 01-24-2023 Admission to establishment AYESHA N SUPPAN DPM [facility] Start: 05-13-2022 End: 05-17-2022 Outreach Lab JOANN AQUINO SLEEP MEDICINE PHYSICIAN-CONTRACT MAIL CARRIER [facility] Start: 12-04-2021 End: 12-08-2021 Outreach Lab RAFAEL PAREDES DO [facility] Start: 07-21-2021 End: 07-25-2021 Outreach Lab GARRETT DAVIS SLEEP MEDICINE PHYSICIAN-CONTRACT MAIL CARRIER [facility] Start: 03-20-2021 End: 03-20-2021 Patient encounter procedure ROBB CHAPEPLL MD [facility] Start: 06-13-2018 End: 06-13-2018 Patient encounter procedure RAFAEL FERMIN Facility:[facility] Start: 11-01-2017 End: 11-01-2017 Patient encounter procedure AILVIA JOSEPH Facility:[facility] Procedures Date Procedure Procedure Detail Performing Clinician Start: 03-28-2017 End: 03-28-2017 Documentation of current medications Jordyn Bose Work Phone: Start: 03-28-2017 End: 03-28-2017 JEFF David MD Start: 03-28-2017 End: 03-28-2017 Follow Up Appt 6 months Nisha Anderson Start: 02-15-2017 End: 03-24-2017 *Hepatic Function Panel Nisha Anderson Start: 02-15-2017 End: 03-24-2017 Lipid 1996 panel - Serum or Plasma Alberto David MD Start: 02-15-2017 End: 03-24-2017 Hepatic function 2000 panel - Serum or Plasma Alberto David MD Start: 02-15-2017 End: 03-24-2017 Lipid 1996 panel - Serum or Plasma Alberto David MD Start: 08-18-2016 End: 08-18-2016 Dietary management education, guidance, and counseling Corine Cehng RN Start: 08-18-2016 End: 08-18-2016 Documentation of current medications Corine Cheng RN Start: 08-18-2016 End: 08-29-2016 Carotid duplex Alberto David MD Start: 08-18-2016 End: 08-29-2016 Carotid duplex Alberto David MD Start: 08-18-2016 End: 03-28-2017 JEFF David MD Start: 08-18-2016 End: 03-28-2017 Follow Up Appt 6 months Nisha Anderson Start: 08-15-2016 End: 08-16-2016 *Hepatic Function Panel Nisha Anderson Start: 08-15-2016 End: 08-16-2016 Lipid Otto panel - Serum or Plasma Alberto David MD Start: 08-15-2016 End: 08-16-2016 Hepatic function 2000 panel - Serum or Plasma Alberto David MD Start: 08-15-2016 End: 08-16-2016 Lipid 1996 panel - Serum or Plasma Alberto David MD Start: 07-07-2016 End: 07-07-2016 JEFF David MD Start: 07-07-2016 End: 07-07-2016 Ecg routine ecg w/least 12 lds w/i&r Alberto David MD Start: 07-07-2016 End: 07-07-2016 Follow Up Appt 6 weeks Alberto David MD Start: 07-07-2016 End: 07-07-2016 JEFF David MD Start: 07-07-2016 End: 07-07-2016 Ecg routine ecg w/least 12 lds w/i&r Alberto David MD Start: 07-07-2016 End: 07-07-2016 Follow Up Appt 6 weeks Alberto David MD Start: 07-06-2016 End: 07-26-2016 INR in Platelet poor plasma by Coagulation assay Alberto David MD Start: 07-06-2016 End: 07-26-2016 INR in Platelet poor plasma by Coagulation assay Alberto David MD Start: 05-23-2016 End: 05-24-2016 Referral to optical goods drill operator Alberto David MD Start: 05-23-2016 End: 05-24-2016 Referral to optical goods drill operator Alberto David MD Start: 05-20-2016 End: 05-20-2016 JEFF David MD Start: 05-20-2016 End: 05-20-2016 Follow Up Appt 3 months Nisha Anderson Start: 05-20-2016 End: 05-20-2016 Follow Up Appt Other Alberto David MD Start: 05-20-2016 End: 05-20-2016 JEFF David MD Start: 05-20-2016 End: 05-20-2016 Follow Up Appt 3 months Nisha Anderson Start: 05-20-2016 End: 05-20-2016 Follow Up Appt Other Alberto David MD Start: 07-07-2015 End: 07-07-2015 JEFF David MD Start: 07-07-2015 End: 07-07-2015 Ecg routine ecg w/least 12 lds w/i&r Alberto David MD Start: 07-07-2015 End: 07-07-2015 Follow Up Appt 1 year Alberto David MD Start: 07-07-2015 End: 07-07-2015 JEFF David MD Start: 07-07-2015 End: 07-07-2015 Ecg routine ecg w/least 12 lds w/i&r Alberto David MD Start: 01-01-2015 End: 07-14-2015 *Hepatic Function Panel Nisha Anderson Start: 01-01-2015 End: 07-14-2015 Lipid 1996 panel - Serum or Plasma Alberto David MD Start: 01-01-2015 End: 07-14-2015 Hepatic function 2000 panel - Serum or Plasma Alberto David MD Start: 01-01-2015 End: 07-14-2015 Lipid 1996 panel - Serum or Plasma Alberto David MD Start: 07-04-2014 End: 07-04-2014 *Hepatic Function Panel Nisha Anderson Start: 07-04-2014 End: 07-04-2014 ACADEMIC SUPPORT CENTER DIRECTOR Alberto David MD Start: 07-04-2014 End: 07-05-2014 Documentation of current medications Alberto David MD Start: 07-04-2014 End: 07-04-2014 Follow Up Appt 1 year Alberto David MD Start: 07-04-2014 End: 07-04-2014 Lipid 1996 panel - Serum or Plasma Alberto David MD Start: 07-04-2014 End: 07-04-2014 Thyrotropin [Units/volume] in Serum or Plasma Alberto David MD Start: 07-04-2014 End: 07-04-2014 Thyroxine (T4) [Mass/volume] in Serum or Plasma Alberto David MD Start: 07-04-2014 End: 07-04-2014 JEFF David MD Start: 07-04-2014 End: 07-05-2014 Documentation of current medications Alberto David MD Start: 07-04-2014 End: 07-04-2014 Hepatic function 2000 panel - Serum or Plasma Alberto David MD Start: 07-04-2014 End: 07-04-2014 Lipid 1996 panel Alberto David MD Start: 07-04-2014 End: 07-04-2014 Thyrotropin [Units/volume] in Serum or Plasma Alberto David MD Start: 07-04-2014 End: 02-20-2015 Thyroxine (T4) [Mass/volume] in Serum or Plasma Alberto David MD Start: 05-06-2013 End: 09-02-2013 24 hour holter monitor Donovan Harmon MD Start: 05-06-2013 End: 09-02-2013 Lipid 1996 panel Donovan Harmon MD Start: 04-02-2012 End: 04-04-2012 24 hour holter monitor Alberto David MD Start: 04-02-2012 End: 04-04-2012 Ecg routine ecg w/least 12 lds w/i&r Alberto David MD Start: 04-02-2012 End: 04-04-2012 24 hour holter monitor Alberto David MD Start: 04-02-2012 End: 04-04-2012 Ecg routine ecg w/least 12 lds w/i&r Alberto David MD Start: 01-18-2012 End: 01-18-2012 Follow Up Appt 1 year Alberto David MD Start: 01-18-2012 End: 01-18-2012 Follow Up Appt 1 year Alberto David MD Appendectomy AYESHA MOHAN DP M Arthroscopy of knee AYESHA MAIER DPM Plan of Treatment Date Care Activity Detail Author Start: 09-28-2017 End: 09-28-2017 Patient encounter procedure Appointment [facility] Work Phone: Start: 09-21-2017 End: 03-24-2017 *Hepatic Function Panel *Hepatic Function Panel [facility] Work Phone: Start: 09-21-2017 End: 03-24-2017 Lipid panel [AGGREGATE] *Lipid Profile CC PCP [facility] Work Phone: Start: 09-21-2017 End: 03-24-2017 Hepatic function 2000 panel - Serum or Plasma *Hepatic Function Panel [facility] Work Phone: Start: 09-21-2017 End: 03-24-2017 Lipid 1996 panel - Serum or Plasma *Lipid Profile CC PCP [facility] Work Phone: Start: 03-28-2017 End: 03-28-2017 Appointment Appointment [facility] Work Phone: Start: 03-28-2017 End: 03-28-2017 [employer] DIRECTOR [employer] DIRECTOR [facility] Work Phone: Start: 03-28-2017 End: 03-28-2017 Follow Up Appt 6 months Follow Up Appt 6 months [facility] Work Phone: Start: 02-17-2017 End: 02-17-2017 Patient encounter procedure Appointment [facility] Phone: Start: 02-15-2017 End: 03-24-2017 *Hepatic Function Panel *Hepatic Function Panel [facility] Work Phone: Start: 02-15-2017 End: 03-24-2017 Lipid panel [AGGREGATE] *Lipid Profile CC PCP [facility] Work Phone: Start: 02-15-2017 End: 03-24-2017 Hepatic function 2000 panel - Serum or Plasma *Hepatic Function Panel [facility] Phone: Start: 02-15-2017 End: 03-24-2017 Lipid 1996 panel - Serum or Plasma *Lipid Profile CC PCP [facility] Work Phone: Start: 08-18-2016 End: 08-18-2016 Carotid duplex Carotid duplex [facility] Work Phone: Start: 08-18-2016 End: 08-18-2016 [employer] DIRECTOR [employer] C[facility] DIRECTOR [facility] Work Phone: Start: 08-18-2016 End: 08-18-2016 Ecg routine ecg w/least 12 lds w/i&r EKG (In office) [facility] Work Phone: Start: 08-18-2016 End: 08-18-2016 Follow Up Appt 6 months Follow Up Appt 6 months [facility] Work Phone: Start: 08-18-2016 End: 08-18-2016 Carotid duplex Carotid duplex [facility] Work Phone: Start: 08-18-2016 End: 03-28-2017 [employer] C[employer] DIRECTOR AC[employer] CENTER DIRECTOR [facility] Work Phone: Start: 08-18-2016 End: 08-18-2016 Ecg routine ecg w/least 12 lds w/i&r EKG (In office) [facility] Work Phone: Start: 08-18-2016 End: 03-28-2017 Follow Up Appt 6 months Follow Up Appt 6 months [facility] Work Phone: Start: 08-15-2016 End: 08-16-2016 *Hepatic Function Panel *Hepatic Function Panel [facility] Work Phone: Start: 08-15-2016 End: 08-16-2016 Lipid panel [AGGREGATE] *Lipid Profile CC PCP [facility] Work Phone: Start: 08-15-2016 End: 08-16-2016 Hepatic function 2000 panel - Serum or Plasma *Hepatic Function Panel [facility] Work Phone: Start: 08-15-2016 End: 08-16-2016 Lipid 1996 panel - Serum or Plasma *Lipid Profile CC PCP [facility] Work Phone: Start: 07-07-2016 End: 07-07-2016 [employer] C[facility] DIRECTOR AC[employer] CENTER DIRECTOR [facility] Work Phone: Start: 07-07-2016 End: 07-07-2016 Ecg routine ecg w/least 12 lds w/i&r EKG (In office) [facility] Work Phone: Start: 07-07-2016 End: 07-07-2016 Follow Up Appt 6 weeks Follow Up Appt 6 weeks [facility] Work Phone: Start: 07-07-2016 End: 07-07-2016 [employer] [employer] C[facility] DIRECTOR AC[employer] C[facility] DIRECTOR [facility] Work Phone: Start: 07-07-2016 End: 07-07-2016 Ecg routine ecg w/least 12 lds w/i&r EKG (In office) [facility] Work Phone: Start: 07-07-2016 End: 07-07-2016 Follow Up Appt 6 weeks Follow Up Appt 6 weeks [facility] Work Phone: Start: 07-06-2016 End: 07-26-2016 INR Coag RelTime (PPP) *PT/INR - Standing Order [facility] Work Phone: Start: 07-06-2016 End: 07-26-2016 INR in Platelet poor plasma by Coagulation assay *PT/INR - Standing Order [facility] Work Phone: Start: 05-23-2016 End: 05-23-2016 EPS Referral EPS Referral Rafael Fermin, [address], [place], [address] [facility] Work Phone: Start: 05-23-2016 End: 05-23-2016 Patient encounter procedure EPS Referral Rafael Fermin, [address], [place], [address] [facility] Work Phone: Start: 05-20-2016 End: 05-20-2016 [employer] [employer] DIRECTOR [employer] [facility] DIRECTOR [facility] Work Phone: Start: 05-20-2016 End: 05-20-2016 Follow Up Appt 3 months Follow Up Appt 3 months [facility] Work Phone: Start: 05-20-2016 End: 05-20-2016 Follow Up Appt Other Follow Up Appt Other [facility] Work Phone: Start: 05-20-2016 End: 05-20-2016 [employer] C[facility] DIRECTOR AC[employer] C[facility] DIRECTOR [facility] Work Phone: Start: 05-20-2016 End: 05-20-2016 Follow Up Appt 3 months Follow Up Appt 3 months [facility] Work Phone: Start: 05-20-2016 End: 05-20-2016 Follow Up Appt Other Follow Up Appt Other [facility] Work Phone: Start: 07-07-2015 End: 07-07-2015 [employer] C[facility] DIRECTOR [employer] C[facility] DIRECTOR [facility] Work Phone: Start: 07-07-2015 End: 07-07-2015 Ecg routine ecg w/least 12 lds w/i&r EKG (In office) [facility] Work Phone: Start: 07-07-2015 End: 07-07-2015 Follow Up Appt 1 year Follow Up Appt 1 year [facility] Work Phone: Start: 07-07-2015 End: 07-07-2015 [employer] C[facility] DIRECTOR AC[employer] CENTER DIRECTOR [facility] Work Phone: Start: 07-07-2015 End: 07-07-2015 Ecg routine ecg w/least 12 lds w/i&r EKG (In office) [facility] Work Phone: Start: 07-07-2015 End: 07-07-2015 Follow Up Appt 1 year Follow Up Appt 1 year [facility] Work Phone: Start: 01-01-2015 End: 07-14-2015 *Hepatic Function Panel *Hepatic Function Panel [facility] Work Phone: Start: 01-01-2015 End: 07-14-2015 Lipid panel [AGGREGATE] *Lipid Profile CC PCP [facility] Work Phone: Start: 01-01-2015 End: 07-14-2015 Hepatic function 2000 panel - Serum or Plasma *Hepatic Function Panel [facility] Group Work Phone: Start: 01-01-2015 End: 07-14-2015 Lipid 1996 panel - Serum or Plasma *Lipid Profile CC PCP [facility] Work Phone: Start: 07-04-2014 End: 07-04-2014 *Hepatic Function Panel *Hepatic Function Panel [facility] Work Phone: Start: 07-04-2014 End: 07-04-2014 [facility] DIRECTOR [facility] DIRECTOR [facility] Work Phone: Start: 07-04-2014 End: 07-04-2014 Follow Up Appt 1 year Follow Up Appt 1 year [facility] Work Phone: Start: 07-04-2014 End: 07-04-2014 Lipid panel [AGGREGATE] *Lipid Profile CC PCP [facility] Work Phone: Start: 07-04-2014 End: 07-04-2014 Thyroid stimulating hormone (TSH) *TSH [facility] Work Phone: Start: 07-04-2014 End: 07-04-2014 Thyroxine (T4) *T4 (Total) [facility] Work Phone: Start: 07-04-2014 End: 07-04-2014 [facility] DIRECTOR [facility] DIRECTOR [facility] Work Phone: Start: 07-04-2014 End: 07-04-2014 Follow Up Appt 1 year Follow Up Appt 1 year [facility] Work Phone: Start: 07-04-2014 End: 07-04-2014 Hepatic function 2000 panel - Serum or Plasma *Hepatic Function Panel [facility] Work Phone: Start: 07-04-2014 End: 07-04-2014 Lipid 1996 panel - Serum or Plasma *Lipid Profile CC PCP [facility] Work Phone: Start: 07-04-2014 End: 07-04-2014 Thyrotropin [Units/volume] in Serum or Plasma *TSH [facility] Work Phone: Start: 07-04-2014 End: 07-04-2014 Thyroxine (T4) [Mass/volume] in Serum or Plasma *T4 (Total) [facility] Work Phone: Start: 05-06-2013 End: 09-02-2013 24 hour holter monitor 24 hour holter monitor [facility] Work Phone: Start: 05-06-2013 End: 09-02-2013 24 hour holter monitor 24 hour holter monitor [facility] Work Phone: Start: 04-02-2012 End: 04-02-2012 24 hour holter monitor 24 hour holter monitor [facility] Work Phone: Start: 04-02-2012 End: 04-04-2012 Ecg routine ecg w/least 12 lds w/i&r EKG (In office) [facility] Work Phone: Start: 04-02-2012 End: 04-02-2012 24 hour holter monitor 24 hour holter monitor [facility] Work Phone: Start: 04-02-2012 End: 04-04-2012 Ecg routine ecg w/least 12 lds w/i&r EKG (In office) [facility] Work Phone: Start: 01-18-2012 End: 01-18-2012 Follow Up Appt 1 year Follow Up Appt 1 year [facility] Work Phone: Start: 01-18-2012 End: 01-18-2012 Follow Up Appt 1 year Follow Up Appt 1 year [facility] Work Phone: Patient Education [facility] Work Phone: Immunizations Immunization Date Immunization Notes Care Provider Ephraim horn 06-02-2020 SARS-CoV-2 mRNA (tozinameran) vaccine ROBB CHAPPELL MD [facility] 05-13-2020 SARS-CoV-2 mRNA (tozinameran) vaccine ROBB CHAPPELL MD [facility] 01-14-2016 influenza virus vacc ine, unspecified formulation ORBB CHAPPELL MD [facility] 03-15-2014 influenza virus vacc ine, unspecified formulation ROBB CHAPPELL MD [facility] 01-28-2013 pneumococcal polysaccharide vaccine, 23 valent ROBB CHAPPELL MD [facility] 01-28-2013 tetanus toxoid, redu brian diphtheria toxoid, and acellular pertussis vaccine, adsorbed ROBB CHAPPELL MD [facility] 03-21-2012 hepatitis B vaccine, adult dosage ROBB CHAPPELL MD [facility] 12-08-2011 hepatitis B vaccine, adult dosage ROBB CHAPPELL MD [facility] Payers Date Payer Category Payer Unknown [id number] 1960 Unknown [id number] [id number] 1960 Unknown [id number] [id number] [id number] 1959 Unknown [id number] 1959 Unknown [id number] [id number] [id number] 1959 Unknown [id number] 2.16.8 [id number] 1960 Unknown [id number] [id number] [id number] Social History Date Type Detail Facility Start: 11-12-2019 End: 07-05-2023 Never smoked tobacco (finding) [facility] Sex Assigned At [facility] Functional Status Date Assessment Result Facility 09-22-2023 Functional Status elevated on pi llows, ice on [facility] 02-03-2023 Functional Status Maintained [facility] 01-24-2023 Functional Status Sensory Deficits None A [facility] Mental Status Date Assessment Result Facility 02-03-2023 Mental Status Orientation Oriented x 4 [facility] 02-03-2023 Mental Status [facility] Clinical Notes 08-02-2016 to 07-07-2023 Note Date & Type Note Facility 07-07-2023 Note . MICRO - Microbiology PROCEDURE: Urine Culture [*1] SOURCE: Urine, Clean Catch BODY SITE: COLLECTED DATE/TIME: 07/05/2023 10:33 EST RECEIVED DATE/TIME: 07/05/2023 15:39 EST START DATE/TIME: 07/05/2023 15:39 EST FREE TEXT SOURCE: FINAL REPORTS Final Report [] Verified Date/Time/Personnel: 07/07/2023 07:25 EST 50,000 - 100,000 cfu/ml Klebsiella pneumoniae PRELIMINARY REPORTS Preliminary Report [] Verified Date/Time/Personnel: 07/06/2023 10:55 EST 50,000 - 100,000 cfu/ml Klebsiella pneumoniae [facility] to follow SUSCEPTIBILITY RESULTS Klebsiella pneumoniae Antibiotic [facility] Dilut [facility] Inter Ampicillin >16 Resistant Ampicillin/ <=4/2 Susceptible Sulbactam Aztreonam <=4 Susceptible Cefazolin <=2 Susceptible Ciprofloxacin <=0.25 Susceptible Ertapenem <=0.5 Susceptible Gentamicin <=2 Susceptible ID Panel Not Not Applicable Applicable Imipenem <=1 Susceptible Levofloxacin <=0.5 Susceptible Meropenem <=1 Susceptible Minocycline <=4 Susceptible Nitrofurantoin 64 Intermediate Piperacillin/ <=8 Susceptible Tazobactam Trimethoprim/ <=0.5/9.5 Susceptible Sulfa Performing Locations *1: This test was performed at: [facility], [address] [place] [address], [id number] , [facility] (ID) [place] ADMISSION HISTORY AN D PHYSICIAL CHIEF COMPLAINT: painful right foot, neuroma HISTORY OF PRESENT ILLNESS: continued pain without resolve with cons tx REVIEW OF SYSTEMS: hx cardiology, has clearance updated by Alexandro ACTIVE PROBLEMS: (12) Acute maxillary sinusitis (293369978) Acute sinusitis (64839803) Asthma (584416862) Brugada syndrome (2777666864) Carotid bruit (5247095176) Depression (70402209) High cholesterol (06840407) PAF (paroxysmal atrial fibrillation) (371275168) Postconcussion syndrome (78885396) UTI (urinary tract infection) (090846183) UTI symptoms (037142852) Vertigo (4080517560) MEDICATIONS: Active Inpt Meds: None Active PRN Meds: None One Time Meds: None Active IV Meds: Lactated Ringers Infusion 1,000 mL (LR 1,000 mL) Start: 02/03/23 8:17:00 EDT, Rate: 125 mL/hr, 02/03/23 8:17:00 EDT ALLERGIES: (4) Benadryl codeine Contrast dye penicillin FAMILY HISTORY: SOCIAL HISTORY: PHYSICAL EXAM: VITALS: [id number](kg) 02/03 08:2136.4--[id number] 24 Hr Tmax: 36.4 at 02/03 08:21 36 Hr Tmax: 36.4 at 02/03 08:21 Vital Signs are the last 5 in the past 48 hours. Weights display the last 5 within 7 days. Initial Wt: No Data Available Current Wt: No Data Available GENERAL: AOx3 HEENT:no mass, no JVD CARDIOVASCULAR: no chest pain or SOB, clearance from [facility] RESPIRATORY:no SOB ABDOMEN: defer EXREMETIES: painful right foot NEUROLOGICAL II-XII intact PSYCHIATRIC: LABS: No 36hr Lab Data DIAGNOSTICS: IMPRESSION: neuroma 2nd and 3rd IS right foot PLAN: pt consented for excision/release neuroma 2nd and 3rd IS right foot [facility] 09-22-2023 Hospital Discharge instructions Patient Education 02/03/2023 10:30:59 How to Use a Cast Shoe How to Use a Cast Shoe A cast shoe is a stiff shoe that you wear over a cast. You may need to wear a cast shoe after a foot or leg injury. It helps you to walk and it keeps your cast clean and dry. Your health care provider may give you a cast shoe after you are allowed to use your injured foot or leg to support (bear) your weight. Cast shoes are made of various materials, including those made with canvas sides. They usually havea flat, firm, cushioned bottom. What are the risks? A cast shoe that is not worn properly can lead to cast damage. To protect the cast: Properly position and adjust the shoe to support the cast. Bear weight on the cast shoe only as told by your health care provider. How to use a cast shoe Wear the cast shoe as told by your health care provider. Follow the director of marketing analytics's instructions for use. Tighten and properly adjust the cast shoe so it is secure on your foot. Do not wear the cast shoe while you are resting at home while not standing on your leg. Do not wear it while you are sleeping. Keep the cast shoe clean and dry. Do not wear any other kind of footwear until your health care provider says you can. How to care for your cast shoe Use mild soap and water to clean your cast shoe. Make sure your cast shoe is completely clean and dry before you put it over your cast. Contact a health care provider if: Your cast gets wet or damaged. You have foot pain when you wear the cast shoe. You have foot pain when you move. Your foot pain is getting worse or the pain is not getting better over time. Summary A cast shoe is a rigid shoe that you wear over a cast. A cast shoe helps you to walk and it keeps your cast clean and dry. A cast shoe that is not worn properly can lead to cast damage. This information is not intended to replace advice given to you by your health care provider. Make sure you discuss any questions you have with your health care provider. Document Released: 06/08/2005 Document Revised: 08/22/2019 Document Reviewed: 05/01/2019 [employer] Patient Education 2020 [employer] 02/03/2023 10:30:02 Nausea and Vomiting, Adult Nausea and Vomiting, Adult Nausea is the feeling that you have an upset stomach or that you are about to vomit. Vomiting is when stomach contents are thrown up and out of the mouth as a result of nausea. Vomiting can make you feel weak and cause you to become dehydrated. Dehydration can make you feel tired and thirsty, cause you to have a dry mouth, and decrease how often you urinate. Older adults and people with other diseases or a weak disease-fighting system (immune system) are at higher risk for dehydration. It is important to treat your nausea and vomiting as told by your health care provider. Follow these instructions at home: Watch your symptoms for any changes. Tell your health care provider about them. Follow these instructions to care for yourself at home. Eating and drinking Take an oral rehydration solution (ORS). This is a drink that is sold at pharmacies and retail stores. Drink clear fluids slowly and in small amounts as you are able. Clear fluids include water, ice chips, low-calorie sports drinks, and fruit juice that has water added (diluted fruit juice). Eat bland, vmjo-vt-uhmsxq foods in small amounts as you are able. These foods include bananas, applesauce, rice, lean meats, toast, and crackers. Avoid fluids that contain a lot of sugar or caffeine, such as energy drinks, sports drinks, and soda. Avoid alcohol. Avoid spicy or fatty foods. General instructions Take rcjx-zzr-fxklemw and prescription medicines only as told by your health care provider. Drink enough fluid to keep your urine pale yellow. Wash your hands often using soap and water. If soap and water are not available, use hand bull driver. Make sure that all people in your household wash their hands well and often. Rest at home while you recover. Watch your condition for any changes. Breathe slowly and deeply when you feel nauseated. Keep all follow-up visits as told by your health care provider. This is important. Contact a health care provider if: Your symptoms get worse. You have new symptoms. You have a fever. You cannot drink fluids without vomiting. Your nausea does not go away after 2 days. You feel light-headed or dizzy. You have a headache. You have muscle cramps. You have a rash. You have pain while urinating. Get help right away if: You have pain in your chest, neck, arm, or jaw. You feel extremely weak or you faint. You have persistent vomiting. You have vomit that is bright red or looks like black coffee grounds. You have bloody or black stools or stools that look like tar. You have a severe headache, a stiff neck, or both. You have severe pain, cramping, or bloating in your abdomen. You have difficulty breathing, or you are breathing very quickly. Your heart is beating very quickly. Your skin feels cold and clammy. You feel confused. You have signs of dehydration, such as: ?Dark urine, very little urine, or no urine. ?Cracked lips. ?Dry mouth. ?Sunken eyes. ?Sleepiness. ?Weakness. These symptoms may represent a serious problem that is an emergency. Do not wait to see if the symptoms will go away. Get medical help right away. Call your local emergency services (911 in the [place] Do not drive yourself to the hospital. Summary Nausea is the feeling that you have an upset stomach or that you are about to vomit. As nausea getsworse, it can lead to vomiting. Vomiting can make you feel weak and cause you to become dehydrated. Follow instructions from your health care provider about eating and drinking to prevent dehydration. Take sift-hbm-aptdtha and prescription medicines only as told by your health care provider. Contact your health care provider if your symptoms get worse, or you have new symptoms. Keep all follow-up visits as told by your health care provider. This is important. This information is not intended to replace advice given to you by your health care provider. Make sure you discuss any questions you have with your health care provider. Document Released: 05/01/2006 Document Revised: 08/23/2019 Document Reviewed: 10/09/2018 [employer] Patient Education 2020 [email or web address]. 02/03/2023 10:29:57 Monitored Anesthesia Care, Care After Monitored Anesthesia Care, Care After These instructions provide you with information about caring for yourself after your procedure. Your health care provider may also give you more specific instructions. Your treatment has been plannedaccording to current medical practices, but problems sometimes occur. Call your health care provider if you have any problems or questions after your procedure. What can I expect after the procedure? After your procedure, you may: Feel sleepy for several hours. Feel clumsy and have poor balance for several hours. Feel forgetful about what happened after the procedure. Have poor judgment for several hours. Feel nauseous or vomit. Have a sore throat if you had a breathing tube during the procedure. Follow these instructions at home: For at least 24 hours after the procedure: Have a responsible adult stay with you. It is important to have someone help care for you until youare awake and alert. Rest as needed. Do not: ?Participate in activities in which you could fall or become injured. ?Drive. ?Use heavy machinery. ?Drink alcohol. ?Take sleeping pills or medicines that cause drowsiness. ?Make important decisions or sign legal documents. ?Take care of children on your own. Eating and drinking Follow the diet that is recommended by your health care provider. If you vomit, drink water, juice, or soup when you can drink without vomiting. Make sure you have little or no nausea before eating solid foods. General instructions Take uuff-jqb-ugvztsm and prescription medicines only as told by your health care provider. If you have sleep apnea, surgery and certain medicines can increase your risk for breathing problems. Follow instructions from your health care provider about wearing your sleep device: ?Anytime you are sleeping, including during daytime naps. ?While taking prescription pain medicines, sleeping medicines, or medicines that make you drowsy. If you smoke, do not smoke without supervision. Keep all follow-up visits as told by your health care provider. This is important. Contact a health care provider if: You keep feeling nauseous or you keep vomiting. You feel light-headed. You develop a rash. You have a fever. Get help right away if: You have trouble breathing. Summary For several hours after your procedure, you may feel sleepy and have poor judgment. Have a responsible adult stay with you for at least 24 hours or until you are awake and alert. This information is not intended to replace advice given to you by your health care provider. Make sure you discuss any questions you have with your health care provider. Document Released: 08/21/2016 Document Revised: 07/30/2018 Document Reviewed: 08/21/2016 [employer] Patient Education 2020 [email or web address]. Follow Up Care 01/03/2023 12:46:48 With:AYESHA MOHAN DPM, Surgery Address: [address] [place] [address], [address] [facility] [place] [place] [address]- When:02/09/2023 12:40:00 Comments:Follow-up as scheduled [facility] 09-22-2023 Summary of episode note Discharge Instructions Thank you for allowing [facility] to assist you with your healthcare needs. The following is importantdischarge information regarding your hospital visit. Your Care Team MICHAEL HENAO DO What to do next Follow Up Appointments Follow Up with AYESHA MOHAN DPM, Surgery When 02/09/2023 12:40 PM EDT Why: Follow-up as scheduled Where: [address], [address] [facility] [place] [place] [address]- The Following Activity and Diet Have Been Ordered for You Discharge Activity - Ordered -- Other, Follow the post-operative/post-procedure activity instructions provided by your physician's office., 02/03/23 10:06:00 EDT No qualifying data available. The Following Equipment Has Been Ordered for You Discharge Home Equipment Discharge Wound Care - Ordered -- Follow the post-operative/post-procedure wound care instructions provided by your physician's office., 02/03/23 10:06:00 EDT The Following Treatments Have Been Ordered for You Discharge Labs No qualifying data available. Discharge Radiology No qualifying data available. Other Therapies No qualifying data available. Post Acute Orders No qualifying data available. Allergies Benadryl (muscle spasm, Bladder spasm, Itch) Contrast dye (hives) codeine (Itch) penicillin (Itch) Medications Please ask your primary doctor or pharmacist before taking any other medication not listed, including over the counter drugs, herbal medications, vitamins and or supplements as they may interact withyour home medications. What How Much When Why Instructions Last Dose Unchanged albuterol (albuterol MDI (90 mcg/ inh) CFC free inhalation aerosol) 2 puff(s) by inhalation Every 4 hours as needed for as needed for wheezing Acute sinusitis Unchanged aspirin (Aspirin Enteric Coated 81 mg oral delayed release tablet) 1 tab(s) by mouth Once a day Unchanged dilTIAZem (DilTIAZem (Eqv-Cardizem CD) 120 mg/ 24 hours oral capsule, extended release) 1 cap by mouth Once a day Unchanged ibuprofen (ibuprofen 200 mg oral tablet) 2 tab(s) by mouth Every 6 hours as needed for pain or fever Unchanged loratadine (loratadine 10 mg oral tablet) 1 tab(s) by mouth Once a day as needed for Allergy symptoms Unchanged multivitamin (Multivitamin) 1 tab(s) by mouth Every day Unchanged multivitamin with minerals (Calcium/ Magnesium/ Vit D) 15 Milliliter by mouth Two (2) times a day Unchanged nitrofurantoin (Macrobid 100 mg oral capsule) 1 cap by mouth Two (2) times a day Duration: 10 Days Take with food Unchanged phenazopyridine (AZO Urinary Pain Relief Max Strength) 195 Milligram by mouth Three (3) times a day after meals as needed for as needed for urinary discomfort Unchanged rosuvastatin (rosuvastatin 10 mg oral tablet) 1 tab(s) by mouth Once a day Please take this list to your next doctor s visit. Bring all medications you take, including over the counter medications, herbals and other supplements with you to your doctor s visit. Patients and families are reminded to discard old lists and to update any records with all medication providers or retail pharmacies. Education Materials How to Use a Cast Shoe A cast shoe is a stiff shoe that you wear over a cast. You may need to wear a cast shoe after a foot or leg injury. It helps you to walk and it keeps your cast clean and dry. Your health care provider may give you a cast shoe after you are allowed to use your injured foot or leg to support (bear) your weight. Cast shoes are made of various materials, including those made with canvas sides. They usually havea flat, firm, cushioned bottom. What are the risks? A cast shoe that is not worn properly can lead to cast damage. To protect the cast: Properly position and adjust the shoe to support the cast. Bear weight on the cast shoe only as told by your health care provider. How to use a cast shoe Wear the cast shoe as told by your health care provider. Follow the director of marketing analytics's instructions for use. Tighten and properly adjust the cast shoe so it is secure on your foot. Do not wear the cast shoe while you are resting at home while not standing on your leg. Do not wear it while you are sleeping. Keep the cast shoe clean and dry. Do not wear any other kind of footwear until your health care provider says you can. How to care for your cast shoe Use mild soap and water to clean your cast shoe. Make sure your cast shoe is completely clean and dry before you put it over your cast. Contact a health care provider if: Your cast gets wet or damaged. You have foot pain when you wear the cast shoe. You have foot pain when you move. Your foot pain is getting worse or the pain is not getting better over time. Summary A cast shoe is a rigid shoe that you wear over a cast. A cast shoe helps you to walk and it keeps your cast clean and dry. A cast shoe that is not worn properly can lead to cast damage. This information is not intended to replace advice given to you by your health care provider. Make sure you discuss any questions you have with your health care provider. Document Released: 06/08/2005 Document Revised: 08/22/2019 Document Reviewed: 05/01/2019 [employer] Patient Education 2020 [email or web address]. Nausea and Vomiting, Adult Nausea is the feeling that you have an upset stomach or that you are about to vomit. Vomiting is when stomach contents are thrown up and out of the mouth as a result of nausea. Vomiting can make you feel weak and cause you to become dehydrated. Dehydration can make you feel tired and thirsty, cause you to have a dry mouth, and decrease how often you urinate. Older adults and people with other diseases or a weak disease-fighting system (immune system) are at higher risk for dehydration. It is important to treat your nausea and vomiting as told by your health care provider. Follow these instructions at home: Watch your symptoms for any changes. Tell your health care provider about them. Follow these instructions to care for yourself at home. Eating and drinking Take an oral rehydration solution (ORS). This is a drink that is sold at pharmacies and retail stores. Drink clear fluids slowly and in small amounts as you are able. Clear fluids include water, ice chips, low-calorie sports drinks, and fruit juice that has water added (diluted fruit juice). Eat bland, mpgq-yc-rsdzro foods in small amounts as you are able. These foods include bananas, applesauce, rice, lean meats, toast, and crackers. Avoid fluids that contain a lot of sugar or caffeine, such as energy drinks, sports drinks, and soda. Avoid alcohol. Avoid spicy or fatty foods. General instructions Take fstm-plf-uappiaj and prescription medicines only as told by your health care provider. Drink enough fluid to keep your urine pale yellow. Wash your hands often using soap and water. If soap and water are not available, use hand bull driver. Make sure that all people in your household wash their hands well and often. Rest at home while you recover. Watch your condition for any changes. Breathe slowly and deeply when you feel nauseated. Keep all follow-up visits as told by your health care provider. This is important. Contact a health care provider if: Your symptoms get worse. You have new symptoms. You have a fever. You cannot drink fluids without vomiting. Your nausea does not go away after 2 days. You feel light-headed or dizzy. You have a headache. You have muscle cramps. You have a rash. You have pain while urinating. Get help right away if: You have pain in your chest, neck, arm, or jaw. You feel extremely weak or you faint. You have persistent vomiting. You have vomit that is bright red or looks like black coffee grounds. You have bloody or black stools or stools that look like tar. You have a severe headache, a stiff neck, or both. You have severe pain, cramping, or bloating in your abdomen. You have difficulty breathing, or you are breathing very quickly. Your heart is beating very quickly. Your skin feels cold and clammy. You feel confused. You have signs of dehydration, such as: ? Dark urine, very little urine, or no urine. ? Cracked lips. ? Dry mouth. ? Sunken eyes. ? Sleepiness. ? Weakness. These symptoms may represent a serious problem that is an emergency. Do not wait to see if the symptoms will go away. Get medical help right away. Call your local emergency services (911 in the [place] Do not drive yourself to the hospital. Summary Nausea is the feeling that you have an upset stomach or that you are about to vomit. As nausea getsworse, it can lead to vomiting. Vomiting can make you feel weak and cause you to become dehydrated. Follow instructions from your health care provider about eating and drinking to prevent dehydration. Take bywm-zki-ohfdmal and prescription medicines only as told by your health care provider. Contact your health care provider if your symptoms get worse, or you have new symptoms. Keep all follow-up visits as told by your health care provider. This is important. This information is not intended to replace advice given to you by your health care provider. Make sure you discuss any questions you have with your health care provider. Document Released: 05/01/2006 Document Revised: 08/23/2019 Document Reviewed: 10/09/2018 ElsePrior Knowledge Patient Education 2020 [email or web address]. Monitored Anesthesia Care, Care After These instructions provide you with information about caring for yourself after your procedure. Your health care provider may also give you more specific instructions. Your treatment has been plannedaccording to current medical practices, but problems sometimes occur. Call your health care provider if you have any problems or questions after your procedure. What can I expect after the procedure? After your procedure, you may: Feel sleepy for several hours. Feel clumsy and have poor balance for several hours. Feel forgetful about what happened after the procedure. Have poor judgment for several hours. Feel nauseous or vomit. Have a sore throat if you had a breathing tube during the procedure. Follow these instructions at home: For at least 24 hours after the procedure: Have a responsible adult stay with you. It is important to have someone help care for you until youare awake and alert. Rest as needed. Do not: ? Participate in activities in which you could fall or become injured. ? Drive. ? Use heavy machinery. ? Drink alcohol. ? Take sleeping pills or medicines that cause drowsiness. ? Make important decisions or sign legal documents. ? Take care of children on your own. Eating and drinking Follow the diet that is recommended by your health care provider. If you vomit, drink water, juice, or soup when you can drink without vomiting. Make sure you have little or no nausea before eating solid foods. General instructions Take qbqt-uam-qcotyll and prescription medicines only as told by your health care provider. If you have sleep apnea, surgery and certain medicines can increase your risk for breathing problems. Follow instructions from your health care provider about wearing your sleep device: ? Anytime you are sleeping, including during daytime naps. ? While taking prescription pain medicines, sleeping medicines, or medicines that make you drowsy. If you smoke, do not smoke without supervision. Keep all follow-up visits as told by your health care provider. This is important. Contact a health care provider if: You keep feeling nauseous or you keep vomiting. You feel light-headed. You develop a rash. You have a fever. Get help right away if: You have trouble breathing. Summary For several hours after your procedure, you may feel sleepy and have poor judgment. Have a responsible adult stay with you for at least 24 hours or until you are awake and alert. This information is not intended to replace advice given to you by your health care provider. Make sure you discuss any questions you have with your health care provider. Document Released: 08/21/2016 Document Revised: 07/30/2018 Document Reviewed: 08/21/2016 ElsePrior Knowledge Patient Education 2020 [employer] Additional Information VACCINATE! IT SAVES LIVES! Members of the community who have not yet received the COVID-19 vaccine and would like to receive it can visit one of [facility] vaccine clinics. There are many vaccine clinic locations within the [facility]. For locations and available times, please visit [email or web address].gov/. It is important to note that some COVID mobile vaccine clinics are held outdoors and may be canceled in rainy or stormy conditions. To learn more about pediatric vaccinations (ages 5-11), we invite you to visit the [facility] webpage. https://www.[facility].org/pages/6128-Dwgjq-Ubwmbffhdtm-Yjbghvcurp-Zzaag-Yci stions.htmlTo learn more about the COVID-19 vaccine, we invite you to visit the CDC website for a list of frequently asked questions.https://www.cdc.gov/coronavirus/2019-ncov/vaccines/faq.html [facility] Patient Portal Access Instructions: Stay connected with your healthcare team and access your personal medical information anytime with the [facility] Patient Portal. Please follow the directions below to create your [facility] account: 1.Access the email account you provided upon registration to the hospital/physician office.2.Look for an invitation email from [facility].3.Open the email and access the invitation link: AcceptInvitation to [facility].4.Fill in the required gordon to create your account. To access your account, visit [email or web address]. Click the blue button labeled Access Patient Portal and then log in with the username and password that you created in the steps above. You will be able to view your test results, lab results, a summary of your visits, upcoming appointments and more. There is also a convenient messaging option where you can send secure messages to your p rovider. In addition, you will have the ability to download any documents or summaries to your computer and/or send the information securely to a physician. Remember that your healthcare information is confidential, so carefully consider who you will allowto register on the [facility] Patient Portal for access to your information. You can also access the [facility] on the [facility] jarvis. Simply click on Patient Portal and then log into your account. If you would like to receive a full copy of your medical records, please contact the [facility] Medical Records Department by calling [phone], Monday through Monday between 8 a.m. and 4:30 p.m. HOW TO SAFELY DISPOSE OF PRESCRIPTION MEDICATIONS Please use one of the following methods to safely dispose of your unused medications. 1.Use a drug disposal kit: the drug disposal pouch allows you to safely discard your old and unuseddrugs. Ask your nurse to give you one when you are discharged.2.Visit a local take-back location: Many local pharmacies and police departments have programs that collect old and unwanted prescriptiondrugs. Call your local pharmacy or go to http://MotherKnows.Jybe/9B6Ca1k to find one close to you.3.Make use of household items: Use cat litter or old coffee grounds to dispose medications if other options arenot available. Mix your drugs with these household products, seal them in an airtight container andthrow it into the garbage. Call [facility]: [phone] to be sure your drugs can be disposed of in this way. Some medicines may require a different approach.4.Never flush your medications down the toilet. IF YOU HAVE BEEN PRESCRIBED AN OPIOID FOR PAIN If you have been prescribed an opioid (such as hydrocodone, oxycodone or morphine), it is critical to understand the possible side effects and risks of opioid pain medications. Even when taken as directed, opioids can have several side effects including: Tolerance, meaning you might need to take more of a medication for the same pain relief. Nausea, vomiting and/or constipation. Sleepiness, dizziness, dry mouth, confusion, depression or itching. Physical dependence, meaning you have withdrawal symptoms when a medication is stopped, can develop within a few days. KNOW YOUR RESPONSIBILITIES It is important to know exactly how much and how often to take the opioid pain medications you are prescribed. Never take opioids in higher amounts or more often than prescribed. Do not combine opioids with alcohol or other drugs that cause drowsiness, such as benzodiazepines, also known as benzos, including diazepam and alprazolam, muscle relaxants or sleep aids. Never sell or share prescription opioids. This is illegal. Store opioids in a secure place and out of reach of others (including children, family, friends and visitors). The last page of this document has been signed and retained as a CHART COPY. Signatures Patient Education Materials How to Use a Cast Shoe Nausea and Vomiting, Adult Monitored Anesthesia Care, Care After Medication Leaflets My discharge plan and instructions have been reviewed and explained to me and I,JORDYN FLOWER understand my current condition and have read and understand these discharge instructions. I have received a written copy of the plan/instructions. If I have questions, I am aware that I should contact my doctor. Patient/Bobbin Handler Signature: Date/Time: Relationship to Patient: Witness Name/Signature: Date/Time: [facility]09-22-2023 Note [place] ADMISSION HISTORY AND PHYSICIAL CHIEF COMPLAINT: painful right foot, neuroma HISTORY OF PRESENT ILLNESS: continued pain without resolve with cons tx REVIEW OF SYSTEMS: cardiology, has clearance updated by Alexandro ACTIVE PROBLEMS: (12) Acute maxillary sinusitis (812359063) Acute sinusitis (30182898) Asthma (387499786) Brugada syndrome (3427683844) Carotid bruit (9763730611) Depression (84269857) High cholesterol (03400301) PAF (paroxysmal atrial fibrillation) (818872876) Postconcussion syndrome (16782860) UTI (urinary tract infection) (950389147) UTI symptoms (864130266) Vertigo (8846451760) MEDICATIONS: Active Inpt Meds: None Active PRN Meds: None One Time Meds: None Active IV Meds: Lactated Ringers Infusion 1,000 mL (LR 1,000 mL) Start: 02/03/23 8:17:00 EDT, Rate: 125 mL/hr, 02/03/23 8:17:00 EDT ALLERGIES: (4) Benadryl codeine Contrast dye penicillin FAMILY HISTORY: SOCIAL HISTORY: PHYSICAL EXAM: VITALS: UbcromLyldAHYochlMRDrM0FAZ7YvkrNb(kg) 02/03 08:2136.4--158948VN 24 Hr Tmax: 36.4 at 02/03 08:21 36 Hr Tmax: 36.4 at 02/03 08:21 Vital Signs are the last 5 in the past 48 hours. Weights display the last 5 within 7 days. Initial Wt: No Data Available Current Wt: No Data Available GENERAL: AOx3 HEENT:no mass, no JVD CARDIOVASCULAR: no chest pain or SOB, clearance from alexandro RESPIRATORY:no SOB ABDOMEN: defer EXREMETIES: painful right foot NEUROLOGICAL II-XII intact PSYCHIATRIC: LABS: No 36hr Lab Data DIAGNOSTICS: IMPRESSION: neuroma 2nd and 3rd IS right foot PLAN: pt consented for excision/release neuroma 2nd and 3rd IS right foot Digitally Signed by AYESHA MOHAN DPM on 02/03/2023 09:28 AM [facility]09-22-2023 Anesthesiology Consult note Patient: JORDYN FLOWER Age: 62 years Sex: Female : 1960 Associated Diagnoses: None Author: JEFFRY VILLA APRN-HAND ASSEMBLER FOR [employer] Preoperative Information Anesthesia history Patient's history: negative. Family's history: negative. Health Status Allergies: Allergic Reactions (Selected) Severity Not Documented Benadryl- Muscle spasm, bladder spasm and itch. Codeine- Itch. Contrast dye- Hives. Penicillin- Itch., Allergies (4) ActiveReaction BenadrylBladder spasm codeineItch Contrast dyehives penicillinItch Current medications: (Selected) Inpatient Medications Ordered LR 1,000 mL: 125 mL/hr, Intravenous Prescriptions Prescribed Macrobid 100 mg oral capsule: 100 mg, 1 cap(s), Oral, BID, for 10 day(s), Take with food, 20 cap(s), 0 Refill(s) albuterol MDI (90 mcg/inh) CFC free inhalation aerosol: 2 puff(s), Inhalation, q4h, PRN: as needed for wheezing, 18 gram(s), 0 Refill(s) Documented Medications Documented AZO Urinary Pain Relief Max Strength: 195 mg, Oral, TIDPC, PRN: as needed for urinary discomfort, 0Refill(s) Aspirin Enteric Coated 81 mg oral delayed release tablet: 81 mg, 1 tab(s), Oral, qDay, 0 Refill(s) Calcium/Magnesium/Vit D: 15 mL, Oral, BID, 0 Refill(s) DilTIAZem (Eqv-Cardizem CD) 120 mg/24 hours oral capsule, extended release: 120 mg, 1 cap(s), Oral,qDay, 0 Refill(s) Multivitamin: 1 tab(s), Oral, Daily, 0 Refill(s) ibuprofen 200 mg oral tablet: 400 mg, 2 tab(s), Oral, q6hr, PRN: pain or fever, 0 Refill(s) loratadine 10 mg oral tablet: 10 mg, 1 tab(s), Oral, qDay, PRN: Allergy symptoms, 0 Refill(s) rosuvastatin 10 mg oral tablet: 10 mg, 1 tab(s), Oral, qDay, 0 Refill(s), Medications (1) Active Scheduled: (0) Continuous: (1) Lactated Ringers 1,000 mL 1,000 mL, Intravenous, 125 mL/hr PRN: (0) Problem list: Medical Acute maxillary sinusitis / SNOMED CT 982329091 / Confirmed Acute sinusitis / SNOMED CT 48878857 / Confirmed UTI symptoms / SNOMED CT 701510338 / Confirmed UTI (urinary tract infection) / SNOMED CT 959804222 / Confirmed Vertigo / SNOMED CT 7391117889 / Confirmed, Active Problems (12) Acute maxillary sinusitis Acute sinusitis Asthma Brugada syndrome Carotid bruit Depression High cholesterol PAF (paroxysmal atrial fibrillation) Postconcussion syndrome UTI (urinary tract infection) UTI symptoms Vertigo Histories Past Medical History: Resolved Atrial fibrillation (63030388): Resolved. Family History: No family history items have been selected or recorded. Procedure history: Hysterectomy (818367176). Bilateral oophorectomy (958675646). Arthroscopy of knee (062702527). Comments: 01/24/2023 9:33 GEETAT Anuradha Amaro RN right Tonsillectomy and adenoidectomy (647062705). History of cardiac radiofrequency ablation (9137126759). Comments: 01/24/2023 9:33 Anuradha Monae RN x2 Appendectomy (229151282). Social History Social & Psychosocial Habits Alcohol 01/25/2023Risk Assessment: Denies Alcohol Use 01/25/2023 Use: Current Type: Beer Frequency: 1-2 times per year Substance Abuse 01/25/2023Risk Assessment: Denies Substance Abuse 01/25/2023 Use: Never Tobacco 01/25/2023 Tobacco Use: Never (less than 100 in l Exposure to Tobacco Smoke Lives in non-smoking home Home/Environment 01/25/2023 Domestic Concerns None Living situation: Home/Independent Primary Rail Director: Self Current Home Treatments None Special Services and Community Resources None Marital Status of Patient if Patient Independent Adult: Unmarried Nutrition/Health 01/25/2023 Type of diet: Regular, no almonds, gluten free Appetite Good Eating Difficulties None Caffeine intake amount: 5 servings daily or less, usually less . Physical Examination Vital Signs 02/03/2023 8:21 EDT Temperature Temporal Artery 36.4 DegC Apical Heart Rate 72 bpm Respiratory Rate 13 br/min LOW Systolic Blood Pressure Non-Invasive 118 mmHg Diastolic Blood Pressure Non-Invasive 59 mmHg LOW Vital Signs(last 24 hrs) Last Charted Resp Rate L 13br/min (FEB 03 08:21) CCJ158 mmHg (FEB 03 08:21) DBPL 59mmHg (FEB 03 08:21) Pain assessment: Pain Assessment 02/03/2023 8:21 EDT Primary Pain Intensity 0 Pain Scale Type 0-10 Pain scale . General: Alert and oriented. Airway: Normal temporomandibular joint mobility. Mallampati classification: II (soft palate, fauces, uvula visible). Dentition Evaluation: Dentures, partial plate. Respiratory: Lungs are clear to auscultation, Respirations are non-labored. Cardiovascular: Normal rate, Regular rhythm. Neurologic: Alert, Oriented. Review / Management Results review: No qualifying data available , Lab results 02/03/2023 8:41 EDT SN - Preop - CTm Pt Ready for OR/Proced 02/03/2023 8:41 02/03/2023 8:41 EDT Lactated Ringers Injection Begin Bag 1,000 mL mL 02/03/2023 8:39 EDT Forearm Left 02/03/2023 20 gauge Peripheral IV Activity: Insert new site Peripheral IV Dressing Condition: Clean, Dry, Intact Peripheral IV Dressing Activity: Applied, Transparent dressing Peripheral IV Line Status/Patency: Flushes easily, Continuous infusion Peripheral IV Site Condition: No complications Peripheral IV Equipment: Extension set, PRN Adaptor 02/03/2023 8:21 EDT Temperature Temporal Artery 36.4 DegC Apical Heart Rate 72 bpm Respiratory Rate 13 br/min LOW Systolic Blood Pressure Non-Invasive 118 mmHg Diastolic Blood Pressure Non-Invasive 59 mmHg LOW Primary Pain Intensity 0 Pain Scale Type 0-10 Pain scale Heart Rhythm Regular Respirations Unlabored Respiratory Pattern Regular All Lobes Breath Sounds Clear Oxygen Therapy Room air Oxygen Saturation 95 % Abdomen Description Non-distended Abdomen Palpation Non-Tender Bowel Sounds All Quadrants Present Urinary Elimination Voiding, no difficulties Skin Temperature Warm Skin Description Lucan, Dry Skin Integrity Intact Level of Consciousness Alert Strength All Extremities Strong Tone All Extremities Normal Sensation All Extremities Intact Affect/Behavior Appropriate Orientation Oriented x 4 Activity Status ADL Awake, Up to bathroom Sequential Compression Device left knee high applied/on Standard Safety ID band on, Allergy Band on, Call device within reach, Bed in low position, Wheels locked, Upper/Half-Length side-rails up, Safety level maintained, Non-Slip footwear 02/03/2023 8:18 EDT Designated Person #1 We May Share PHI Que Flower [phone] Designated Person #1 Relationship Son Designated Person #2 We May Share PHI Vanessa Bernardo [phone] Designated Person #2 Relationship Daughter Privacy Restrictions Requested None Status No, per patient IV Present Present Sensory Deficits None Sleep Apnea Snore Yes Sleep Apnea Tired Yes Sleep Apnea Obstruction No Sleep Apnea Pressure No Sleep Apnea BMI Yes Sleep Apnea Age Yes Sleep Apnea Neck No Sleep Apnea Gender No Sleep Apnea Score 4 Diagnosed With Sleep Apnea No Advanced Directives Yes Advance Directive Type [place] Durable Power of Sourcing Manager for [place], [place] Declaration (Living Will) Advance Directive Location Patient instructed to bring in copy Infectious Disease Symptoms Patient states no symptoms Infectious Disease Recent Exposure No Alcohol and Drug Use No Employee of Institutional Living No Health Care Employee No History of Exposure to TB No History of Positive Chest X-Ray for TB No History of Positive TB Skin Test No Homeless No Known Immunosuppression No Recent Immigrant No Resident of Institutional Living No Bloody Sputum No Fatigue No Fever No Loss of Appetite No Night Sweats No Persistent Cough > 3 Weeks No Weight Loss No Pre-Op Patient Education NPO after midnight, No makeup, No jewelry, Responsible Libertarian, Aware of surgery location, Pre-op education done, 1 bottle CHG wash with instructions given, Instructed to take ordered medications, SSI prevention handout given SN - Preprocedure Comments Spoke with patient, Verbalizes/Nonverbally indicates understanding, Other: Diltiazem Allergies Yes Anesthesia Extension Set Applied Yes Teachers' Assistant On Yes Consent Form Signed Yes Patient Dressed In Hospital gown CHG Preoperative Wash/Wipe Night before procedure, Day of procedure, Site specific wipe Preop Nasal Swab Povidone-Iodine CHG Skin Prep Completed for Eligible Surgery History & Physical Update On Chart Yes History & Physical On Chart Yes Obstructive Sleep Apnea Assess Completed Yes Barriers to Learning None evident Teaching Method Explanation, Printed materials Preferred Spoken Language Czech Preferred Written Language Czech Teaching Evaluation Verbalizes/Nonverbally indicates understanding Safety Brochure Information Reviewed Unable to complete Eloise Longo Video Viewed No Information Given by Patient Patient's Current Physicians Patient's Current Physicians Belongings At Bedside Glasses, Pants, Shirt, Shoes, Undergarments Discharge To, Anticipated Home independently NPO Status Maintained Prev Test Positive/Diagnosis w/COVID-19 No Current Quarantine/Isolated any Illness No Any Contact with Sick Animals/Birds No Traveled Anywhere in Last 30 Days No Allergy Band on and Verified Yes Patient ID Band on and Verified Yes Implants Verified Yes Pacemaker/AICD Verified Yes Site Verified by Patient/Family Yes Anesthesia Consent Signed Yes Blood Consent Signed Yes Last Fluid Intake 02/02/2023 20:00 Last Food Intake 02/02/2023 20:00 Last Void 02/03/2023 8:21 Cardiac Clearance For Surgery By ALBERTO DAVID MD Lost Weight Unintentionally Recently No Eat Poorly Due to Decreased Appetite No Total MST Score 0 No Personal Devices, Patient Valuables Glasses Anesthesia/Transfusions None Admission Note-Nursing Same Day Patient History 02/03/2023 8:17 EDT SN - Preop - CTm Pt in SDS Room 02/03/2023 8:17 . Assessment and Plan [place] [employer] Anesthesiologists (ASA) physical status classification: Class III. Anesthetic Preoperative Plan Anesthetic technique: MAC. Postoperative pain management: Per surgeon. Risks discussed: nausea, vomiting, hypotension, allergic reaction, serious complications. Informed consent: signed by patient. Digitally Signed by JEFFRY VILLA on 02/03/2023 09:26 AM [facility]09-15-2023 Note. MICRO - Microbiology PROCEDURE: Urine Culture [*1] SOURCE: Urine BODY SITE: COLLECTED DATE/TIME: 01/25/2023 16:04 EDT RECEIVED DATE/TIME: 01/25/2023 19:32 EDT START DATE/TIME: 01/25/2023 19:33 EDT FREE TEXT SOURCE: FINAL REPORTS Final Report [] Verified Date/Time/Personnel: 01/27/2023 07:52 EDT >100,000 cfu/ml Escherichia coli PRELIMINARY REPORTS Preliminary Report [] Verified Date/Time/Personnel: 01/26/2023 10:40 EDT >100,000 cfu/ml Escherichia coli SLADE to follow SUSCEPTIBILITY RESULTS Escherichia coli Antibiotic SLADE Dilut SLADE Inter Ampicillin <=8 Susceptible Ampicillin/ <=4/2 Susceptible Sulbactam Aztreonam <=4 Susceptible Cefazolin <=2 Susceptible Ciprofloxacin <=0.25 Susceptible Ertapenem <=0.5 Susceptible Gentamicin <=2 Susceptible Imipenem <=1 Susceptible Levofloxacin <=0.5 Susceptible Meropenem <=1 Susceptible Minocycline <=4 Susceptible Nitrofurantoin <=32 Susceptible Trimethoprim/ <=0.5/9.5 Susceptible Sulfa Performing Locations *1: This test was performed at: [facility], [address] [place] [address], [id number] , [facility]ly [facility] ([place])03-20-2021 Evaluation + Plan note Future Scheduled Tests Radiology* XR Chest 2 Views (PA & Lateral) 03/20/21 [facility] 11-06-2021 Evaluation + Plan note Future Scheduled Tests Radiology* XR Chest 2 Views (PA & Lateral) 03/20/21 [facility] 03-21-2017 [id number] [id number]/23/2016Clinical consultation report (record artifact)[facility] Work Phone: 1(864) 411-768103-21-2017 [id number] [id number]/23/2016Clinical consultation report (record artifact)[facility] Work Phone: 1(586) 822-526003-21-2017 [id number] [id number]^05/23/2016Clinical consultation report (record artifact)[facility] Work Phone: Evaluation + Plan note Future Appointments [facility] Fall risk assessmentmedical contraindicationW[facility]ost [facility] Work Phone: Hospital course Narrative No data available for this section [facility] Hospital Discharge instructions No data available for this section [facility] Progress note No data available for this section [facility] Summary Purpose Family History No Family History Records FoundNo Family History Records Found No data available for this section No data available for this section No data available for this section No data available for this section No Family History Records Found Advance Directives No Advanced Directives Records FoundNo Advanced Directives Records FoundNo Advanced Directives Records Found Additional Source Comments INFORMATION SOURCE (unrecogn ized section and content) DATE CREATED AUTHOR AUTHOR'S ORGANIZ ATION 10/08/2018 [facility] DATE CREATED AUTHOR AUTHOR'S ORGANIZ ATION 07/16/2023 [facility] ([place]) Care Team (unrecognized sect ion and content) Care Team Personnel Name: MICHAEL HENAO DO Position: P4 Physician - Primary Care Med Service: Active Provider Member Role: Primary Care Physician Address: Address: [address] [place] [address] Name: Gunjan John Position: Quality Review Member Role: Leaf Size Picker Care Team Related Persons Name: VANESSA BERNARDO Name: QUE FLOWER Care Team Personnel Name: MICHAEL HENAO DO Position: P4 Physician - Primary Care Member Role: Primary Care Physician Address: Address: [address] [place] [address] Name: Gunjan John Position: Quality Review Member Role: Leaf Size Picker Care Team Related Persons Name: VANESSA BERNARDO Name: QUE FLOWER Patient Care team informatio n (unrecognized section and content) Care Team Personnel Name: MICHAEL HENAO DO Position: P4 Physician - Primary Care Member Role: Primary Care Physician Address: Address: [address] [place] [address] Name: Gunjan John Position: Quality Review Member Role: Leaf Size Picker Care Team Related Persons Name: VANESSA BERNARDO Name: QUE FLOWER Care Team Personnel Name: MICHAEL HENAO DO Position: P4 Physician - Primary Care Member Role: Primary Care Physician Address: Address: [address] [place] [address] Name: Gunjan John Position: Quality Review Member Role: Leaf Size Picker Care Team Related Persons Name: VANESSA BERNARDO Name: QUE FLOWER Care Team Personnel Name: MICHAEL HENAO DO Position: P4 Physician - Primary Care Member Role: Primary Care Physician Address: Address: [address] [place] [address] Name: Gunjan John MartitaAlvina Position: Quality Review Member Role: Leaf Size Picker Care Team Related Persons Name: VANESSA BERNARDO Name: QUE FLOWER Care Team Personnel Name: MICHAEL HENAO DO Position: Physician - Primary Care Member Role: Primary Care Physician Address: Address: [address], [place] [address] Name: Digna Johncee Kevon Position: Quality Review Member Role: Leaf Size Picker Care Team Related Persons Name: VANESSA BERNARDO Name: QUE FLOWER FOR RECORDS PERTAINING TO PATIENTS WHO ARE OR HAVE BEEN ENROLLED IN A CHEMICAL DEPENDENCY/SUBSTANCEABUSE PROGRAM, SOME INFORMATION MAY BE OMITTED. This clinical summary was aggregated from multiple sources. Caution should be exercised in using it in the provision of clinical care. This summary normalizes information from multiple sources, and as a consequence, information in this document may materially change the coding, format and clinical context of patient data. In addition, data may be omitted in some cases. CLINICAL DECISIONS SHOULD BE BASED ON THE PRIMARY CLINICAL RECORDS. [facility] [employer] provides no warranty or guarantee of the accuracy or completeness of information in this document.
[2023-07-23 06:01] LABS: Anion Gap 7 (5-15); BUN 11 mg/dL (7-18); BUN/Creat Ratio 16.9 RATIO (10-20); Calcium,Total 9.4 mg/dL (8.5-10.1); Chloride 112 mmol/L (98-107); Creatinine, Serum 0.65 mg/dL (0.55-1.02); EST Glomerular Filtration Rate 98 mL/min (>60); Est Glom Filt Rate - Afr Amer 118 mL/min (>60); Estimated Creatinine Clearance 114.73 ml/min; Glucose 116 mg/dL (74-106); Potassium 3.7 mmol/L (3.5-5.1); Sodium Level 143 mmol/L (136-145); Troponin-I HS (w/2H Reflex) 10 pg/mL (3.0-54.0)
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
[2023-07-23 06:25] VITALS: BP 121/74; PULSE 63; RESP 18; O2SAT 96
[2023-07-23 06:46] VITALS: BP 104/62; PULSE 76; RESP 18; TEMP 36.6; O2SAT 99
[2023-07-23 07:41] LABS: Reflex Troponin-HS? (from REC) Y
== END 2023-07-23 06:47 | disposition home or self-care (01) ==
PROVIDERS: Emergency Provider Emergency Medicine; PCP Family Medicine; Visit Provider Emergency Medicine
DX: I48.0 Paroxysmal atrial fibrillation (principal); E78.5 Hyperlipidemia, unspecified; Z79.82 Long term (current) use of aspirin; Z79.899 Other long term (current) drug therapy
CPT/HCPCS: 71045; 80048; 84484; 85025; 93005; 99284; A4216

== ENCOUNTER 2024-07-23 16:30 | Outpatient (RCR) | payer BC, SELFPAY ==
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
--- NOTE | 2024-07-23 17:14 | HP.PTDCSUM_ITS ---
Discharge Summary D/C summary: It has been my pleasure to treat JORDYN CERON referred by Dr. Josué Whittington DO, with the diagnosis of R knee OA for a total of 10 visit(s). Discharge Date: 07/23/24 Please see the following information for a summary of their discharge status. Subjective Subjective: Walked a lot in [place] down inclines and sore since then last week. More walking than usual on that trip downhill. Needed to ice while there. Still some soreness 10/22 today. Was much better prior to that trip. Did exercises while gone. Sitting too long while gone also. Sleep is not a problem. Gym exercises. will make an appointemnt with Serafin as needed. Pain R knee: Pain Intensity (Out of 10): 6 Overall Improvement % Improvement: 80 Objective Objective/Function: 0-115 AROM but painful laterally and labored after about 105 flexion. walks without antalgia today but slow and with some lateral knee pain. Pt wishes to get it ccalmed down at home and then get back to her exercises as she was doing so much better prior to her trip to [place]. Will contact doctor B if soreness does not improve over next 2 weeks. Goals Goal 1:: 0-115 AROM R knee without pain Goal Progress: Goal Met Goal 2:: I appropriate HEP to limit future problems and pain Goal Progress: Goal Met Goal 3:: Knee feels 90% better overall and 1/10 at worst Goal Progress: Progressing Goal 4:: LEFS score 65 Goal Progress: Goal Met Plan Plan: d/c to HEP/gym D/C Information d/c sentence: If there are questions or concerns regarding this patient's physical therapy, please feel free to call me at [phone]. Thank you for the referral of this patient. Sincerely, Stephen Mckinley, DPT, OCS, CSCS Balance/Gait/Functional tests Balance/Special Test Scores Lower Extremity Functional Score: 74 Improvement % Improvement: 80
== END 2024-07-23 19:00 | disposition home or self-care (01) ==
LOC: PT 16:30
PROVIDERS: PCP Family Medicine; Referring Provider Orthopaedic Surgery; Visit Provider Orthopaedic Surgery
DX: M17.11 Unilateral primary osteoarthritis, right knee (principal)
CPT/HCPCS: 97110; 97161; 97164; 97530

== ENCOUNTER → 2025-01-20 | Outpatient (CLI) | payer MEDICARE, BC, SELFPAY ==
[2025-01-20 10:29] LABS: Hematocrit 43.3 % (37-47); Hemoglobin 15.0 g/dL (12.0-15.0); Immature Granulocytes Count 0.020 X10^3/uL (0.0-0.0); Mean Corp Hgb Conc 34.6 g/dL (32-36); Mean Corpuscular Volume 86.4 fL (81-99); Mean Platelet Vol. 11.5 fl (6.2-12.0); NRBC Flagged by Analyzer 0 % (0-5); Platelet Count 307 K/mm3 (150-450); RBC Distribution Width CV 12.6 % (11.6-14.6); RBC Distribution Width SD 39.6 fl (35.1-43.9); Red Blood Count 5.01 M/mm3 (4.2-5.4); White Blood Count 6.1 K/mm3 (4.4-11.0)
[2025-01-20 11:51] LABS: AST(SGOT) 22 U/L (<=31); Alanine Aminotransfer ALT/SGPT 20 U/L (<=34); Albumin, Serum 4.6 g/dL (3.4-4.8); Alkaline Phosphatase 88 U/L (35-104); Anion Gap 14 (5-15); BUN 13 mg/dL (4-19); BUN/Creat Ratio 23.3 RATIO (10-20); Bilirubin, Direct 0.18 mg/dL (0.00-0.30); Calcium,Total 10.0 mg/dL (7.6-11.0); Carbon Dioxide 21.6 mmol/L (21.0-32.0); Chloride 106 mmol/L (98-108); Cholesterol 180 mg/dL (<=200); Free T3 3.1 pg/mL (2.18-3.98); Globulin 2.5 g/dL (2.2-4.2); Glucose 100 mg/dL (70-99); Low Density Lipoprotein Calc. 83 mg/dL; Potassium 4.0 mmol/L (3.3-5.1); Triglycerides 164 mg/dL; Very Low Density Lipoprotein 33 mg/dL (5-40); Vitamin D,25 Hydroxy 39.0 ng/mL (30-100); cholesterol:hdl ratio screen 2.79
== END | disposition home or self-care (01) ==
LOC: LAB 09:17
PROVIDERS: PCP Family Medicine; Referring Provider Nurse Practitioner Gerontology; Visit Provider Nurse Practitioner Gerontology
DX: E55.9 Vitamin D deficiency, unspecified (principal); R53.83 Other fatigue; E78.00 Pure hypercholesterolemia, unspecified; R06.00 Dyspnea, unspecified
CPT/HCPCS: 36415; 80048; 80061; 80076; 82306; 84439; 84443; 84481; 85025

== ENCOUNTER → 2025-03-24 | Outpatient (CLI) | payer MEDICARE, BC, SELFPAY ==
--- NOTE | 2025-03-24 07:49 | ECHOCS_ITS ---
Reason For Study Reason For Study: DYSPNEA Procedure This was a 2D Doppler, Color Flow transthoracic echocardiogram. The study was technically difficult. Contrast injection was performed. Exam performed in department. Left Ventricle Normal LV size. Moderate concentric left ventricular hypertrophy. The left ventricular ejection fraction is 65 %. Stage 2 diastolic dysfunction. No regional wall motion abnormalities noted. Right Ventricle Normal RV size. Normal systolic function. Atria Normal left atrium. Normal right atrium. Mitral Valve Normal mitral valve. Tricuspid Valve Normal tricuspid valve. Aortic Valve Trisinus/trileaflet aortic valve. Pulmonic Valve Normal pulmonic valve. Great Vessels Normal aortic root. The pulmonary artery is normal size. Inferior vena cava collapse with respiration. Pericardium/Pleural No pericardial effusion. Medication 22 gauge I.V. with prn adaptor inserted into right arm. Diluted definity 2ml given slow IV push to enhance endocardial definition. MMode/2D Measurements & Calculations LVIDd: 5.3 cm IVSd: 1.5 cm Ao root diam: 3.4 cm LVIDs: 3.1 cm LVPWd: 1.5 cm FS: 40.7 % LAV(MOD-bp): 56.2 ml LVAd ap4: 31.0 cm2 SV(MOD-sp4): 66.0 ml LAV(MOD-bp) Indexed: 25.3 ml/m2 LVLd ap4: 7.6 cm SI(MOD-sp4): 29.7 ml/m2 LAV(MOD-sp2): 55.4 ml EDV(MOD-sp4): 101.5 ml LAV(MOD-sp4): 57.8 ml EDV(sp4-el): 107.3 ml LVAs ap4: 16.6 cm2 LVLs ap4: 6.2 cm ESV(MOD-sp4): 35.5 ml ESV(sp4-el): 37.6 ml EF(MOD-sp4): 65.0 % EF(sp4-el): 64.9 % SV(sp4-el): 69.6 ml LA A4 area: 19.4 cm2 LA dimension(2D): 4.7 cm RA A4 area: 11.8 cm2 Time Measurements MV dec time: 0.23 sec Doppler Measurements & Calculations MV E max harshal: 113.8 cm/sec Lat Peak E' Harshal: 9.9 cm/sec Med Peak E' Harshal: 6.6 cm/sec MV A max harshal: 90.2 cm/sec E/E' lat: 11.5 E/E' med: 17.3 MV E/A: 1.3 MV V2 max: 118.6 cm/sec MV dec slope: 502.7 cm/sec2 Ao V2 max: 126.1 cm/sec MV max P.6 mmHg Ao max P.4 mmHg MV V2 mean: 68.3 cm/sec Ao V2 mean: 95.6 cm/sec MV mean P.2 mmHg Ao mean P.1 mmHg MV V2 VTI: 41.1 cm Ao V2 VTI: 32.3 cm AV (velocity ratio): 0.88 LV V1 max: 116.5 cm/sec PA V2 max: 131.0 cm/sec LV V1 max P.4 mmHg PA V2 mean: 99.2 cm/sec LV V1 mean P.4 mmHg LV V1 mean: 88.7 cm/sec LV V1 VTI: 28.3 cm ECHO/Echo Complete W/ Contrast Interpretation Summary Normal LV size. Moderate concentric left ventricular hypertrophy. The left ventricular ejection fraction is 65 %. Stage 2 diastolic dysfunction. Contrast injection was performed. Ordering Physician: Nay Murcia Referring Physician: Nay Murcia Performed By: Marilu Bustos RCS
== END | disposition home or self-care (01) ==
PROVIDERS: PCP Family Medicine; Referring Provider Nurse Practitioner Gerontology; Visit Provider Nurse Practitioner Gerontology
DX: R06.09 Other forms of dyspnea (principal)
CPT/HCPCS: 93306; Q9957; A4216; C8929